=== PATIENT | female | born 2000 | race Two or more races ===

== ENCOUNTER 2020-04-09 09:32 | Outpatient (REF) | payer MEDICAID, SELFPAY | END 2020-04-09 09:33 | disposition home or self-care (01) | LOC: HO.LAB 09:32 | PROVIDERS: Visit Provider Internal Medicine | DX: Z20.828 Contact with and (suspected) exposure to other viral communicable diseases (principal) | CPT/HCPCS: C9803; U0003 ==

== ENCOUNTER 2020-04-28 13:31 | Emergency (ER) | payer MEDICAID, SELFPAY ==
[2020-04-28 13:47] VITALS: BP 116/66; PULSE 87; RESP 18; TEMP 36.6; O2SAT 100; BMI 21.9
--- NOTE | 2020-04-28 13:49 | ED.GENADULT ---
HPI - General Adult General Chief complaint: Abdominal Pain <TYE Tinoco - Last Filed: 04/28/20 13:51> Stated complaint: vomiting <TYE Tinoco - Last Filed: 04/28/20 13:51> Time Seen by Provider: 04/28/20 13:48 <TYE Tinoco - Last Filed: 04/28/20 13:51> Source: patient <Virginia Shabazz NP - Last Filed: 04/28/20 16:09> Mode of arrival: ambulatory <Virginia Shabazz NP - Last Filed: 04/28/20 16:09> Limitations: no limitations <Virginia Shabazz NP - Last Filed: 04/28/20 16:09> Related Data Allergies/adverse reactions: Allergies Allergy/AdvReac Type Severity Reaction Status Date / Time No Known Allergies Allergy Verified 04/28/20 13:46 [No Known Allergies*] <TYE Tinoco - Last Filed: 04/28/20 13:51> Physical Exam Vital Signs: Vital Signs: Last Vital Signs Temp 97.9 F 04/28/20 13:47 Pulse 87 04/28/20 13:47 Resp 18 04/28/20 13:47 BP 116/66 04/28/20 13:47 Pulse Ox 100 04/28/20 13:47 Body Mass Index 21.9 <TYE Tinoco - Last Filed: 04/28/20 13:51> Vital Signs: Last Vital Signs Temp 97.9 F 04/28/20 13:47 Pulse 87 04/28/20 13:47 Resp 18 04/28/20 13:47 BP 116/66 04/28/20 13:47 Pulse Ox 100 04/28/20 13:47 Body Mass Index 21.9 <Virginia Shabazz NP - Last Filed: 04/28/20 16:09> Course Course Course Narrative: Rapid medial assesssment - 19 y/o healthy female presenting with N/V x2 days with intermittent epigastic pain, worse in the morning. Unable to tolerate PO per report. No fever, chills, COVID symptoms. Unsure if , LMP 04/02. No abd pain now. Will check labs, Upreg and UA. Appears well on exam. Management per primary provider in the ER. <TYE Tinoco - Last Filed: 04/28/20 13:51>
--- NOTE | 2020-04-28 16:09 | ED_ITS ---
HPI - Abdominal Pain General Chief Complaint: Abdominal Pain <Virginia Shabazz NP - Last Filed: 04/28/20 18:13> Stated Complaint: vomiting <Virginia Shabazz NP - Last Filed: 04/28/20 18:13> Time Seen by Provider: 04/28/20 13:48 <Virginia Shabazz NP - Last Filed: 04/28/20 18:13> Source: patient <Virginia Shabazz NP - Last Filed: 04/28/20 18:13> Mode of arrival: ambulatory <Virginia Shabazz NP - Last Filed: 04/28/20 18:13> Limitations: no limitations <Virginia Shabazz NP - Last Filed: 04/28/20 18:13> History of Present Illness HPI narrative: 19-year-old female previously healthy here with upper abdominal pain with associated vomiting x1 week. No diarrhea. NBNB emesis. No fevers or chills or urinary symptoms. Pain is worsened after eating. Patient smokes marijuana daily. Last menses 1 month ago. Low concern for . <Virginia Shabazz NP - Last Filed: 04/28/20 18:13> MD elicited complaint: abdominal pain <Virginia Shabazz NP - Last Filed: 04/28/20 18:13> Pertinent past history: none <Virginia Shabazz NP - Last Filed: 04/28/20 18:13> Pain Consistency: intermittent <Virginia Shabazz NP - Last Filed: 04/28/20 18:13> Location: epigastric <Virginia Shabazz NP - Last Filed: 04/28/20 18:13> Severity: mild <Virginia Shabazz NP - Last Filed: 04/28/20 18:13> Quality: burning <Virginia Shabazz NP - Last Filed: 04/28/20 18:13> Radiation: none <BELÉN Mcfarland Last Filed: 04/28/20 18:13> Migration to: no migration <Virginia Shabazz NP - Last Filed: 04/28/20 18:13> Exacerbating factors: nothing <Virginia Shabazz NP - Last Filed: 04/28/20 18:13> Relieving factors: nothing <Virginia Shabazz NP - Last Filed: 04/28/20 18:13> Associated symptoms: denies other symptoms <Virginia Shabazz NP - Last Filed: 04/28/20 18:13> Related Data Date of Last Menstrual Period: 04/03/20 <Virginia Shabazz NP - Last Filed: 04/28/20 18:13> Home Medications: Previous Rx's Medication Instructions Recorded cefpodoxime 100 mg PO BID #14 tab 04/28/20 prenat.vits,daniel,cyy-wlda-rqqkc 1 tab PO DAILY #60 tab 04/28/20 pyridoxine (vitamin B6) 25 mg PO TID #30 tab 04/28/20 <Virginia Shabazz NP - Last Filed: 04/28/20 18:13> Allergies/Adverse Reactions: Allergies Allergy/AdvReac Type Severity Reaction Status Date / Time No Known Allergies Allergy Verified 05/03/20 19:06 [No Known Allergies*] <Virginia Shabazz NP - Last Filed: 04/28/20 18:13> Review of Systems Review of Systems Yes all other systems are reviewed and are negative <Virginia Shabazz NP - Last Filed: 04/28/20 18:13> Constitutional: Reports no additional constitutional complaints, Denies body ache(s), Denies chills, Denies fever(s), Denies headache(s) and Denies weakness <Virginia Shabazz NP - Last Filed: 04/28/20 18:13> Eyes: Reports no additional eye complaints and Denies change in vision <Virginia Shabazz NP - Last Filed: 04/28/20 18:13> Reports system reviewed and no additional complaints, except as documented, Denies dizziness, Denies headache(s), Denies nasal congestion, Denies nasal discharge and Denies neck pain <Virginia Shabazz NP - Last Filed: 04/28/20 18:13> Cardiovascular: Reports no additional cardiovascular complaints, Denies chest pain, Denies leg edema and Denies dyspnea <Virginia Shabazz NP - Last Filed: 04/28/20 18:13> Respiratory: Reports no additional respiratory complaints, Denies cough and Denies dyspnea <Virginia Shabazz NP - Last Filed: 04/28/20 18:13> Gastrointestinal: Reports no additional gastrointestinal complaints, Reports abdominal pain, Denies diarrhea, Reports nausea and Reports vomiting <Virginia Shabazz NP - Last Filed: 04/28/20 18:13> Genitourinary: Reports no additional female genitourinary complaints and Denies urinary incontinence <Virginia Shabazz NP - Last Filed: 04/28/20 18:13> Musculoskeletal: Reports no additional musculoskeletal complaints, Denies back pain, Denies arthralgias, Denies joint swelling, Denies neck pain, Denies numbness and Denies tingling <Virginia Shabazz NP - Last Filed: 04/28/20 18:13> Skin/Breast: Reports system reviewed and no additional complaints, except as docu and Denies rash <Virginia Shabazz NP - Last Filed: 04/28/20 18:13> Reports system reviewed and no additional complaints, except as documented, Denies Abnormal speech present, Denies dizziness, Denies headache(s), Denies numbness, Denies tingling and Denies weakness <Virginia Shabazz NP - Last Filed: 04/28/20 18:13> Physical Exam Vital Signs: Vital Signs: Last Vital Signs Temp 98.7 F 04/28/20 17:04 Pulse 78 04/28/20 17:04 Resp 04/28/20 17:04 BP 119/71 04/28/20 17:04 Pulse Ox 100 04/28/20 17:04 Body Mass Index 21.9 <Virginia Shabazz NP - Last Filed: 04/28/20 18:13> Vital Signs: Last Vital Signs Temp 98.7 F 04/28/20 17:04 Pulse 78 04/28/20 17:04 Resp 04/28/20 17:04 BP 119/71 04/28/20 17:04 Pulse Ox 100 04/28/20 17:04 Body Mass Index 21.9 <TYE Alvarenga - Last Filed: 04/28/20 19:15> Vital Signs: Last Vital Signs Temp 98.7 F 04/28/20 17:04 Pulse 78 04/28/20 17:04 Resp 20 04/28/20 17:04 BP 119/71 04/28/20 17:04 Pulse Ox 100 04/28/20 17:04 Body Mass Index 21.9 <Malvin Haas MD - Last Filed: 05/07/20 08:41> Const: General: cooperative, healthy appearing, comfortable and no acute distress <Virginia Shabazz NP - Last Filed: 04/28/20 18:13> Orientation/consciousness: patient oriented x3 <Virginia Shabazz NP - Last Filed: 04/28/20 18:13> Limitations: no limitations <Virginia Shabazz NP - Last Filed: 04/28/20 18:13> HENMT: Head: Yes normal to inspection <Virginia Shabazz NP - Last Filed: 04/28/20 18:13> Ears: hearing grossly normal bilaterally <Virginia Shabazz NP - Last Filed: 04/28/20 18:13> General nose exam: Normal external nose present <Virginia Shabazz NP - Last Filed: 04/28/20 18:13> Face and sinus: Yes normal facial exam <Virginia Shabazz NP - Last Filed: 04/28/20 18:13> Mouth: Normal oral and palatal mucosa present <Virginia Shabazz NP - Last Filed: 04/28/20 18:13> Throat: Yes posterior oropharynx normal <Virginia Shabazz NP - Last Filed: 04/28/20 18:13> Eyes: General: appearance normal, both eyes and all related structures <Virginia Shabazz NP - Last Filed: 04/28/20 18:13> Pupils: Equal, round and reactive pupils present <Virginia Shabazz NP - Last Filed: 04/28/20 18:13> Neck: Neck: Yes normal visual inspection <Virginia Shabazz NP - Last Filed: 04/28/20 18:13> Chest: Chest palpation & inspection: normal inspection of the chest <Virginia Shabazz NP - Last Filed: 04/28/20 18:13> Resp: Effort & Inspection: normal respiratory effort <Virginia Shabazz NP - Last Filed: 04/28/20 18:13> Auscultation: clear to auscultation bilaterally <Virginia Shabazz NP - Last Filed: 04/28/20 18:13> Cardio: Rate: regular rate <Virginia Shabazz NP - Last Filed: 04/28/20 18 :13> Rhythm: regular rhythm <Virginia Shabazz NP - Last Filed: 04/28/20 18:13> Peripheral pulses: Peripheral pulses 2+ throughout <Virginia Shabazz NP - Last Filed: 04/28/20 18:13> GI: Inspection: Yes normal to inspection <Virginia Shabazz NP - Last Filed: 04/28/20 18:13> Palpation (GI): Soft to palpation and Tenderness to palpation present (GI) (No g uarding) in the epigastrum; with no rebound tenderness <Virginia Shabazz NP - Last Filed: 04/28/20 18:13> Auscultation: normal bowel sounds <Virginia Shabazz NP - Last Filed: 04/28/20 18:13> Back/Spine/Pelvis: Thoracic/Lumbar Spine: thoracic and lumbar spine normal to inspection <Virginia Shabazz NP - Last Filed: 04/28/20 18:13> Skin: General skin exam: no rashes or lesions noted <Virginia Shabazz NP - Last Filed: 04/28/20 18:13> Neuro: General: patient oriented x3, no focal motor deficits and normal sensation to monofilament <Virginia Shabazz NP - Last Filed: 04/28/20 18:13> Cranial nerves: Yes Equal, round and reactive pupils present <Virginia Shabazz NP - Last Filed: 04/28/20 18:13> Cognition (Neuro): normal cognition <Virginia Shabazz NP - Last Filed: 04/28/20 18:13> Speech: No Abnormal speech present <Virginia Shabazz NP - Last Filed: 04/28/20 18:13> Gait exam (Neuro): Normal gait present <Virginia Shabazz NP - Last Filed: 04/28/20 18:13> Motor exam (neuro): 5/5 motor strength present throughout <Virginia Shabazz NP - Last Filed: 04/28/20 18:13> Extrem: General: Yes normal to inspection <Virginia Shabazz NP - Last Filed: 04/28/20 18:13> Course Course Course Narrative: 19 yo female here with upper abdominal pain and vomiting x 1 week. Will need labs, UA, NSB, antiemetic and PPI. 1745-+. Add on beta quant. Additional labs pending. Patient feels much improved and epigastric pain is resolved, tolerating PO. No cramping, lower abdominal pain or vaginal bleeding. 1809-additional labs unremarkable. Patient able tolerate p.o.. 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 Her UA is consistent with UTI so we will treat this. Reviewed worrisome signs and symptoms and when to return to the emergency department. Comfortable discharge home. <Virginia Shabazz NP - Last Filed: 04/28/20 18:13> I have reviewed the chart <Malvin Haas MD - Last Filed: 05/07/20 08:41> MDM - Abdominal Pain MDM Narrative Medical decision making narrative: Gastritis, GERD, cholelithiasis, gallstones <Virginia Shabazz NP - Last Filed: 04/28/20 18:13> Medical Records Attestation: I reviewed the patient's medical records. <Virginia Shabazz NP - Last Filed: 04/28/20 18:13> Lab Data Attestation: I reviewed the patient's lab results. <Virginia Shabazz NP - Last Filed: 04/28/20 18:13> Result diagrams: : 04/28/20 17:03 04/28/20 17:03 <Virginia Shabazz NP - Last Filed: 04/28/20 18:13> Labs: Lab Results 04/28/20 04/28/20 04/28/20 Range/Units 17:03 17:03 17:03 WBC 4.7 L (4.8-10.8) X10*3/uL RBC 4.07 L (4.20-5.50) X10*6/uL Hgb 12.5 (12.0-16.0) g/dl Hct 37.9 (37-47) % MCV 93.1 (80-98) fL MCH 30.7 (27.0-33.0) pg MCHC 33.0 (31.0-35.0) g/dl RDW 13.9 (11.0-16.0) % Plt Count 280 (160-400) X10*3/uL MPV 10.4 (9.4-12.3) fL Immature Gran % (Auto) 0.2 (0.0-0.4) % Neut % (Auto) 57.3 (45-73) % Lymph % (Auto) 28.3 (20-40) % Robertson % (Auto) 12.9 H (2-11) % Eos % (Auto) 0.2 (0-4) % Baso % (Auto) 1.1 (0-2) % Lymph # (Auto) 1.3 (1.2-4.9) X10*3/uL Robertson # (Auto) 0.6 (0.1-1.2) X10*3/uL Eos # (Auto) 0.0 (0.0-0.4) X10*3/uL Baso # (Auto) 0.1 (0.0-0.2) X10*3/uL Abs Immat Gran (auto) 0.01 (0.00-0.03) X10*3/uL Absolute Neuts (auto) 2.7 (2.0-8.3) X10*3/uL Absolute Nucleated RBC 0.000 (0.0-0.012) X10*3/uL Nucleated RBC % (auto) 0.0 (0.0-0.2) /100WBC Sodium 136 (135-145) mmol/L Potassium 4.0 (3.3-5.1) mmol/l Chloride 101 (96-108) mmol/L Carbon Dioxide 25 (22-29) mmol/L Anion Gap 14 (12-20) BUN 14 (9-16) mg/dL Creatinine 0.70 (0.5-1.4) mg/dL Estim Creat Clear Calc 101.3 Estimated GFR > 60 Random Glucose 86 (60-115) mg/dL Calcium 9.5 (8.4-10.2) mg/dL Magnesium 2.1 (1.6-2.6) mg/dL Total Bilirubin 0.7 (0.0-1.0) mg/dL Direct Bilirubin 0.3 (0.0-0.5) mg/dL AST 18 (5-31) U/L ALT 14 (0-31) U/L Alkaline Phosphatase 53 (39-117) U/L Total Protein 7.3 (6.5-8.0) g/dL Albumin 4.5 (3.5-5.0) g/dL Lipase 47 (8-78) U/L Beta HCG, Quant 14115 mIU/mL Urine Color YELLOW Urine Appearance TURBID Urine pH 6.0 (5.0-8.0) Ur Specific [place] 1.025 (1.005-1.025) Urine Protein 1+ H (NEG-TRACE) MG/DL Urine Glucose (UA) NEG (NEG) MG/DL Urine Ketones 15 (NEG) MG/DL Urine Blood TRACE (NEG) Urine Nitrite POS H (NEG) Ur Leukocyte Esterase 1+ H (NEG) Urine RBC 1-4 (0) /HPF Urine WBC 30-49 H (0-4) /HPF Ur Squamous Epith Cells TRACE /LPF Urine Bacteria 3+ /LPF Urine Mucus 1+ /LPF Urine Test POSITIVE H (NEGATIVE) <Virginia Shabazz NP - Last Filed: 04/28/20 18:13> Lab Results 04/28/20 04/28/20 04/28/20 Range/Units 17:03 17:03 17:03 WBC 4.7 L (4.8-10.8) X10*3/uL RBC 4.07 L (4.20-5.50) X10*6/uL Hgb 12.5 (12.0-16.0) g/dl Hct 37.9 (37-47) % MCV 93.1 (80-98) fL MCH 30.7 (27.0-33.0) pg MCHC 33.0 (31.0-35.0) g/dl RDW 13.9 (11.0-16.0) % Plt Count 280 (160-400) X10*3/uL MPV 10.4 (9.4-12.3) fL Immature Gran % (Auto) 0.2 (0.0-0.4) % Neut % (Auto) 57.3 (45-73) % Lymph % (Auto) 28.3 (20-40) % Robertson % (Auto) 12.9 H (2-11) % Eos % (Auto) 0.2 (0-4) % Baso % (Auto) 1.1 (0-2) % Lymph # (Auto) 1.3 (1.2-4.9) X10*3/uL Robertson # (Auto) 0.6 (0.1-1.2) X10*3/uL Eos # (Auto) 0.0 (0.0-0.4) X10*3/uL Baso # (Auto) 0.1 (0.0-0.2) X10*3/uL Abs Immat Gran (auto) 0.01 (0.00-0.03) X10*3/uL Absolute Neuts (auto) 2.7 (2.0-8.3) X10*3/uL Absolute Nucleated RBC 0.000 (0.0-0.012) X10*3/uL Nucleated RBC % (auto) 0.0 (0.0-0.2) /100WBC Sodium 136 (135-145) mmol/L Potassium 4.0 (3.3-5.1) mmol/l Chloride 101 (96-108) mmol/L Carbon Dioxide 25 (22-29) mmol/L Anion Gap 14 (12-20) BUN 14 (9-16) mg/dL Creatinine 0.70 (0.5-1.4) mg/dL Estim Creat Clear Calc 101.3 Estimated GFR > 60 Random Glucose 86 (60-115) mg/dL Calcium 9.5 (8.4-10.2) mg/dL Magnesium 2.1 (1.6-2.6) mg/dL Total Bilirubin 0.7 (0.0-1.0) mg/dL Direct Bilirubin 0.3 (0.0-0.5) mg/dL AST 18 (5-31) U/L ALT 14 (0-31) U/L Alkaline Phosphatase 53 (39-117) U/L Total Protein 7.3 (6.5-8.0) g/dL Albumin 4.5 (3.5-5.0) g/dL Lipase 47 (8-78) U/L Beta HCG, Quant 90659 mIU/mL Urine Color YELLOW Urine Appearance TURBID Urine pH 6.0 (5.0-8.0) Ur Specific [place] 1.025 (1.005-1.025) Urine Protein 1+ H (NEG-TRACE) MG/DL Urine Glucose (UA) NEG (NEG) MG/DL Urine Ketones 15 (NEG) MG/DL Urine Blood TRACE (NEG) Urine Nitrite POS H (NEG) Ur Leukocyte Esterase 1+ H (NEG) Urine RBC 1-4 (0) /HPF Urine WBC 30-49 H (0-4) /HPF Ur Squamous Epith Cells TRACE /LPF Urine Bacteria 3+ /LPF Urine Mucus 1+ /LPF Urine Test POSITIVE H (NEGATIVE) <TYE Alvarenga - Last Filed: 04/28/20 19:15> Lab Results 04/28/20 04/28/20 04/28/20 Range/Units 17:03 17:03 17:03 WBC 4.7 L (4.8-10.8) X10*3/uL RBC 4.07 L (4.20-5.50) X10*6/uL Hgb 12.5 (12.0-16.0) g/dl Hct 37.9 (37-47) % MCV 93.1 (80-98) fL MCH 30.7 (27.0-33.0) pg MCHC 33.0 (31.0-35.0) g/dl RDW 13.9 (11.0-16.0) % Plt Count 280 (160-400) X10*3/uL MPV 10.4 (9.4-12.3) fL Immature Gran % (Auto) 0.2 (0.0-0.4) % Neut % (Auto) 57.3 (45-73) % Lymph % (Auto) 28.3 (20-40) % Robertson % (Auto) 12.9 H (2-11) % Eos % (Auto) 0.2 (0-4) % Baso % (Auto) 1.1 (0-2) % Lymph # (Auto) 1.3 (1.2-4.9) X10*3/uL Robertson # (Auto) 0.6 (0.1-1.2) X10*3/uL Eos # (Auto) 0.0 (0.0-0.4) X10*3/uL Baso # (Auto) 0.1 (0.0-0.2) X10*3/uL Abs Immat Gran (auto) 0.01 (0.00-0.03) X10*3/uL Absolute Neuts (auto) 2.7 (2.0-8.3) X10*3/uL Absolute Nucleated RBC 0.000 (0.0-0.012) X10*3/uL Nucleated RBC % (auto) 0.0 (0.0-0.2) /100WBC Sodium 136 (135-145) mmol/L Potassium 4.0 (3.3-5.1) mmol/l Chloride 101 (96-108) mmol/L Carbon Dioxide 25 (22-29) mmol/L Anion Gap 14 (12-20) BUN 14 (9-16) mg/dL Creatinine 0.70 (0.5-1.4) mg/dL Estim Creat Clear Calc 101.3 Estimated GFR > 60 Random Glucose 86 (60-115) mg/dL Calcium 9.5 (8.4-10.2) mg/dL Magnesium 2.1 (1.6-2.6) mg/dL Total Bilirubin 0.7 (0.0-1.0) mg/dL Direct Bilirubin 0.3 (0.0-0.5) mg/dL AST 18 (5-31) U/L ALT 14 (0-31) U/L Alkaline Phosphatase 53 (39-117) U/L Total Protein 7.3 (6.5-8.0) g/dL Albumin 4.5 (3.5-5.0) g/dL Lipase 47 (8-78) U/L Beta HCG, Quant 08814 mIU/mL Urine Color YELLOW Urine Appearance TURBID Urine pH 6.0 (5.0-8.0) Ur Specific [place] 1.025 (1.005-1.025) Urine Protein 1+ H (NEG-TRACE) MG/DL Urine Glucose (UA) NEG (NEG) MG/DL Urine Ketones 15 (NEG) MG/DL Urine Blood TRACE (NEG) Urine Nitrite POS H (NEG) Ur Leukocyte Esterase 1+ H (NEG) Urine RBC 1-4 (0) /HPF Urine WBC 30-49 H (0-4) /HPF Ur Squamous Epith Cells TRACE /LPF Urine Bacteria 3+ /LPF Urine Mucus 1+ /LPF Urine Test POSITIVE H (NEGATIVE) <Malvin Haas MD - Last Filed: 05/07/20 08:41> Discharge Plan Discharge Clinical Impression: , Vomiting, UTI (urinary tract infection) <Virginia Shabazz NP - Last Filed: 04/28/20 18:13> Patient Disposition: Home, Self-Care <Virginia Shabazz NP - Last Filed: 04/28/20 18:13> Instructions: (ED), Urinary Tract Infection in (ED) <Virginia Shabazz NP - Last Filed: 04/28/20 18:13> Additional Instructions: Before getting out of bed in the morning eat a saltine cracker Take the pyridoxine for nausea and vomiting Tylenol only for pain Stay well hydrated and drink powerade and gatorade Call Dr Fu for an appointment <Virginia Shabazz NP - Last Filed: 04/28/20 18:13> Prescriptions: New pyridoxine (vitamin B6) 25 mg tablet 25 mg PO TID Qty: 30 RF: 0 prenat.vits,daniel,ril-lvmw-bywdl Tablet 1 tab PO DAILY Qty: 60 RF: 0 cefpodoxime 100 mg tablet 100 mg PO BID Qty: 14 RF: 0 <Virginia Shabazz NP - Last Filed: 04/28/20 18:13> Referrals: Carlton Fu MD [Physician] - 2 days <Virginia Shabazz NP - Last Filed: 04/28/20 18:13> Interventions: ED Discharge Assessment Last Done: 04/28/20 19:33 <Virginia Shabazz NP - Last Filed: 04/28/20 18:13> Discharge Date/Time: 04/28/20 19:34 <Virginia Shabazz NP - Last Filed: 04/28/20 18:13> PMFSH Past Medical History Date of Last Menstrual Period: 04/03/20 <Virginia Shabazz NP - Last Filed: 04/28/20 18:13> Social History Social History: Social History Alcohol intake: never Smoking Status: Never smoker Advance Directives: No Advance Directives Information Provided: No <Virginia Shabazz NP - Last Filed: 04/28/20 18:13>
[2020-04-28 17:04] VITALS: BP 119/71; PULSE 78; RESP 20; TEMP 37.1; O2SAT 100
[2020-04-28 17:17] LABS: MANUAL DIFF FLAG NO
[2020-04-28 17:23] LABS: Basophils Absolute Auto 0.1 X10*3/uL (0.0-0.2); Basophils Percent Auto 1.1 % (0-2); Eosinophils Percent Auto 0.2 % (0-4); Hematocrit 37.9 % (37-47); Hemoglobin 12.5 g/dl (12.0-16.0); Imm Gran Abs Auto 0.01 X10*3/uL (0.00-0.03); Imm Gran Pct Auto 0.2 % (0.0-0.4); Lymphocytes Absolute Auto 1.3 X10*3/uL (1.2-4.9); Lymphocytes Percent Auto 28.3 % (20-40); Mean Corpuscular Hemoglobin 30.7 pg (27.0-33.0); Mean Corpuscular Volume 93.1 fL (80-98); Mean Platelet Volume 10.4 fL (9.4-12.3); Monocytes Absolute Auto 0.6 X10*3/uL (0.1-1.2); Monocytes Percent Auto 12.9 % (2-11); Neutrophils Absolute Auto 2.7 X10*3/uL (2.0-8.3); Neutrophils Percent Auto 57.3 % (45-73); Platelet Count 280 X10*3/uL (160-400); Red Blood Count 4.07 X10*6/uL (4.20-5.50); Red Cell Distribution Width 13.9 % (11.0-16.0); White Blood Count 4.7 X10*3/uL (4.8-10.8)
[2020-04-28] MEDS: 0.9 % Sodium Chloride 1,000 ML 999 ML IV (17:24)
[2020-04-28 17:25] LABS: Glucose Urine UA NEG (NEG); Leukocyte Esterase Urine 1+ (NEG); Nitrite Urine POS (NEG); Specific Gravity - Urine 1.025 (1.005-1.025); Urine Blood TRACE (NEG); Urine Ketones 15 MG/DL (NEG); Urine Protein 1+ MG/DL (NEG-TRACE)
[2020-04-28] MEDS: ondansetron HCL 4 MG/2 ML VIAL IVPUSH (17:25)
[2020-04-28] MEDS: Famotidine/PF 20 MG/2 ML VIAL IVPUSH (17:25)
[2020-04-28 17:33] LABS: Color Urine YELLOW
[2020-04-28 17:34] LABS: Appearance Urine TURBID
[2020-04-28 17:35] LABS: UPreg QC Valid YES; Urine Pregnancy POSITIVE (NEGATIVE)
[2020-04-28 17:41] LABS: Bacteria Urine 3+ /LPF; Mucus Urine 1+ /LPF; Squamous Epithelial Cell Urine TRACE /LPF; WBC Urine 30-49 /HPF (0-4)
[2020-04-28 17:52] LABS: Alanine Aminotransferase 14 U/L (0-31); Albumin Level 4.5 g/dL (3.5-5.0); Alkaline Phosphatase 53 U/L (39-117); Anion Gap 14 (12-20); Aspartate Amino Transferase 18 U/L (5-31); Bilirubin Direct 0.3 mg/dL (0.0-0.5); Bilirubin Total 0.7 mg/dL (0.0-1.0); Blood Urea Nitrogen 14 mg/dL (9-16); Calcium 9.5 mg/dL (8.4-10.2); Carbon Dioxide 25 mmol/L (22-29); Chloride 101 mmol/L (96-108); Creatinine Clr Calc Pharmacy 101.3; Estimated Glomerular Filt Rate > 60; Glucose Random 86 mg/dL (60-115); Lipase 47 U/L (8-78); Magnesium 2.1 mg/dL (1.6-2.6); Sodium 136 mmol/L (135-145); Total Protein 7.3 g/dL (6.5-8.0)
== END 2020-04-28 19:34 | disposition home or self-care (01) ==
PROVIDERS: Nurse Practitioner Family; Physician Assistant; Emergency Provider Emergency Medicine
DX: O23.41 Unspecified infection of urinary tract in pregnancy, first trimester (principal); O99.322 Drug use complicating pregnancy, second trimester; F12.90 Cannabis use, unspecified, uncomplicated; Z3A.01 Less than 8 weeks gestation of pregnancy
CPT/HCPCS: 36415; 80048; 80076; 81001; 81025; 83690; 83735; 84702; 85025; 87086; 87088; 87186; 96361; 96374; 96375; 99284; J2405

== ENCOUNTER 2020-05-03 18:59 | Emergency (ER) | payer MEDICAID, SELFPAY ==
[2020-05-03 19:07] VITALS: BP 116/69; PULSE 81; RESP 18; TEMP 37.1; O2SAT 98; BMI 22.1
[2020-05-03 19:28] LABS: Glucose Urine UA NEG (NEG); Leukocyte Esterase Urine NEG (NEG); Nitrite Urine POS (NEG); UACC Culture Trigger YES; Urine Blood NEG (NEG); Urine Ketones 5 MG/DL (NEG); Urine Protein NEG (NEG-TRACE)
[2020-05-03 19:30] LABS: Appearance Urine HAZY; Color Urine YELLOW
[2020-05-03 19:38] LABS: Bacteria Urine 3+ /LPF; RBC Urine 0 /HPF (0); Squamous Epithelial Cell Urine TRACE /LPF; WBC Urine 0-2 /HPF (0-4)
--- NOTE | 2020-05-03 20:45 | US_ITS ---
EXAMINATION: ULTRASOUND OB LESS THAN 14 WEEKS CLINICAL INFORMATION: Right lower quadrant pain, vaginal bleeding. Rule out ectopic. COMPARISON: None TECHNIQUE: Transabdominal ultrasound pelvis is performed. FINDINGS: The uterus is anteverted with an intrauterine gestational sac, pole and yolk sac. The crown-rump length measures 0.66 cm corresponding to 6 weeks 4 days and MARIBELL of 12/23/2020. The heart rate is 126 bpm. A small subchorionic bleed lateral to gestational sac is suspected. The right ovary measures 2.4 x 1.3 x 1.2 cm and appears unremarkable. Left ovary measures 2.2 x 0.9 x 1.5 cm and appears unremarkable. US/US OB <= 14 weeks fetus IMPRESSION: Live intrauterine fetus with a small subchorionic bleed visualized. ultrasound measurement corresponds to 6 weeks and 4 days and MARIBELL of 12/23/2020.
--- NOTE | 2020-05-03 20:53 | ED_ITS ---
HPI - General Adult General Chief complaint: Vaginal Bleeding Stated complaint: bleeding, Time Seen by Provider: 05/03/20 20:26 Source: patient Mode of arrival: ambulatory Limitations: no limitations History of Present Illness HPI narrative: 19-year-old female who presents emergency department for evaluation vaginal bleeding and abdominal pain. The patient is a G2, P0, 4 weeks, 3 days gestation by LMP 04/02/2020 who was seen in the emergency department 5 days prior (04/28/2020) for urinary tract infection treated with Cefpodoxime. She states that around 4:00 p.m. she urinated and the urine was blood-tinged. She then developed sharp pain in the right lower quadrant which lasted 4 minutes. The pain was constant, moderate intensity and then resolved. Patient states that she had a miscarriage 2 years prior was concerned that she was having another miscarriage therefore she came to the emergency department. In the emergency department she denied frequency, urgency or dysuria. She denied abdominal pain. She has had nausea but no vomiting. She denied fever or chills. On 04/28/2020 the patient's urinalysis and microscopic evaluation revealed 30-49 white blood cells and 3+ bacteria. She had a quantitative beta HCG which was 47,505. Related Data Previous Rx's Medication Instructions Recorded cefpodoxime 100 mg PO BID #14 tab 04/28/20 prenat.vits,daniel,qfg-tiyw-kyafu 1 tab PO DAILY #60 tab 04/28/20 pyridoxine (vitamin B6) 25 mg PO TID #30 tab 04/28/20 Allergies Allergy/AdvReac Type Severity Reaction Status Date / Time No Known Allergies Allergy Verified 05/03/20 19:06 [No Known Allergies*] Review of Systems Review of Systems: Yes all other systems are reviewed and are negative Neurologic: Reports Abnormal speech present [facility] Past Medical History [facility] Narrative: Patient is a G2, P0, 1 miscarriage at 2-3 months approximately 2 years prior, no other medical problems, she denies tobacco, alcohol and drug use. Social History Social History Alcohol intake: never Smoking Status: Never smoker Advance Directives: No Advance Directives Information Provided: No Physical Exam Vital Signs: Vital Signs: Last Vital Signs Temp 98.6 F 05/03/20 21:56 Pulse 88 05/03/20 21:56 Resp 18 05/03/20 21:56 BP 121/78 05/03/20 21:56 Pulse Ox 100 05/03/20 21:56 Body Mass Index 22.1 Const: General: cooperative and healthy appearing Orientation/consciou sness: oriented to person and oriented to place Limitations: no limitations HENMT: Head: Yes normal to inspection, Yes normocephalic and Yes atraumatic Ears: external ears normal General nose exam: Normal external nose present Face and sinus: Yes normal facial exam Mouth: Normal oral and palatal mucosa present Throat: Yes posterior oropharynx normal Eyes: Periorbital: periorbital findings normal Eyelids: Yes eyelids normal Conjunctivae: conjunctivae normal Sclerae: sclerae normal Corneas: corneas normal Pupils: Equal, round and reactive pupils present Direct Ophthalmoscopy: normal light reflex Neck: Neck: Yes full ROM, Yes no lymphadenopathy, Yes no meningeal signs, Yes trachea midline and Yes supple Chest: Chest palpation & inspection: normal inspection of the chest and normal palpation of entire chest wall Resp: Effort & Inspection: normal respiratory effort and able to speak in complete sentences Auscultation: clear to auscultation bilaterally Cardio: Rate: regular rate Rhythm: regular rhythm Heart sounds: S1 normal heart sound present, S2 normal heart sound present and no murmurs GI: Inspection: Yes normal to inspection Palpation (GI): Soft to palpation, Tenderness to palpation present (GI) ([id number] RLQ tenderness), no guarding, not rigid and No hepatosplenomegaly present : General: Yes no CVA tenderness Back/Spine/Pelvis: Back: no CVA tenderness Cervical Spine: normal cervical lordosis Thoracic/Lumbar Spine: thoracic and lumbar spine normal to inspection Skin: Lesions: no lesions Rashes: no rashes Wounds: no wounds Neuro: General: oriented to person, oriented to place and no meningeal signs Cranial nerves: Yes Equal, round and reactive pupils present Cognition (Neuro): normal cognition Speech: Abnormal speech present Motor exam (neuro): 5/5 motor strength present throughout Extrem: General: Yes normal to inspection and Yes full ROM Psych: Appearance: well kempt Mental Status: mental status grossly normal Speech and movement: Normal speech and movement present Affect: normal affect Attitude: cooperative Thought process: Normal thought process present Thought content: Normal thought content present Course Course Course Narrative: 19-year-old female who presented to the emergency department for evaluation RLQ pain which lasted for minutes and blood tinged urine. The patient is 4 weeks and 3 days by LMP date. She was seen 5 days prior for urinary tract infection and is currently taking antibiotics. Examination revealed normal vital signs, she did have [id number] right lower quadrant tenderness. I did order laboratory evaluation to include CBC, CMP, quantitative beta HCG, blood type and pelvic ultrasound to rule out ectopic. 2218: The patient's CBC was unremarkable with an H&H of 12 and 37.6, which was similar to her H&H on 04/28/2020. Comprehensive metabolic panel was normal. Patient's blood type is B positive. She had improvement of the WBCs but she still has bacteria in her urine. Urine culture did grow E coli which was pansensitive and should be sensitive to the 3rd generation cephalosporin that she was started on 04/28/2020. The pelvic ultrasound revealed a live 6 week 4 day intrauterine with an EDC of 12/23/2020. There was a small chorionic bleed which may explain the patient's abdominal pain and bleeding. I did discuss these findings with the patient and the patient will be discharged home. She was given verbal and printed instructions, she was advised to take Tylenol for pain and I told it was important to make sure that she keeps her appointments with the senior service aide providers. Repeat quantitative beta-hCG increased from 47,000 to 132,000. Medical Decision Making Lab Data Result diagrams: 05/03/20 21:47 05/03/20 21:47 Labs: Lab Results 05/03/20 05/03/20 05/03/20 Range/Units 19:17 21:47 21:47 WBC 6.0 (4.8-10.8) X10*3/uL RBC 4.04 L (4.20-5.50) X10*6/uL Hgb 12.4 (12.0-16.0) g/dl Hct 37.6 (37-47) % MCV 93.1 (80-98) fL MCH 30.7 (27.0-33.0) pg MCHC 33.0 (31.0-35.0) g/dl RDW 13.9 (11.0-16.0) % Plt Count 254 (160-400) X10*3/uL MPV 10.8 (9.4-12.3) fL Immature Gran % (Auto) 0.2 (0.0-0.4) % Neut % (Auto) 64.7 (45-73) % Lymph % (Auto) 24.2 (20-40) % [place] % (Auto) 9.2 (2-11) % Eos % (Auto) 1.2 (0-4) % Baso % (Auto) 0.5 (0-2) % Lymph # (Auto) 1.5 (1.2-4.9) X10*3/uL [place] # (Auto) 0.6 (0.1-1.2) X10*3/uL Eos # (Auto) 0.1 (0.0-0.4) X10*3/uL Baso # (Auto) 0.0 (0.0-0.2) X10*3/uL Abs Immat Gran (auto) 0.01 (0.00-0.03) X10*3/uL Absolute Neuts (auto) 3.9 (2.0-8.3) X10*3/uL Absolute Nucleated RBC 0.000 (0.0-0.012) X10*3/uL Nucleated RBC % (auto) 0.0 (0.0-0.2) /100WBC Sodium 136 (135-145) mmol/L Potassium 3.9 (3.3-5.1) mmol/l Chloride 103 (96-108) mmol/L Carbon Dioxide 24 (22-29) mmol/L Anion Gap 13 (12-20) BUN 9 (9-16) mg/dL Creatinine 0.64 (0.5-1.4) mg/dL Estim Creat Clear Calc 115.9 Estimated GFR > 60 Random Glucose 85 (60-115) mg/dL Calcium 9.2 (8.4-10.2) mg/dL Total Bilirubin 0.3 (0.0-1.0) mg/dL AST 17 (5-31) U/L ALT 11 (0-31) U/L Alkaline Phosphatase 53 (39-117) U/L Total Protein 7.1 (6.5-8.0) g/dL Albumin 4.5 (3.5-5.0) g/dL Beta HCG, Quant 012253 mIU/mL Urine Color YELLOW Urine Appearance HAZY Urine pH 7.0 (5.0-8.0) Ur Specific [place] 1.020 (1.005-1.025) Urine Protein NEG (NEG-TRACE) MG/DL Urine Glucose (UA) NEG (NEG) MG/DL Urine Ketones 5 (NEG) MG/DL Urine Blood NEG (NEG) Urine Nitrite POS H (NEG) Ur Leukocyte Esterase NEG (NEG) Urine RBC 0 (0) /HPF Urine WBC 0-2 (0-4) /HPF Ur Squamous Epith Cells TRACE /LPF Urine Bacteria 3+ /LPF Blood Type 05/03/20 Range/Units 21:47 WBC (4.8-10.8) X10*3/uL RBC (4.20-5.50) X10*6/uL Hgb (12.0-16.0) g/dl Hct (37-47) % MCV (80-98) fL MCH (27.0-33.0) pg MCHC (31.0-35.0) g/dl RDW (11.0-16.0) % Plt Count (160-400) X10*3/uL MPV (9.4-12.3) fL Immature Gran % (Auto) (0.0-0.4) % Neut % (Auto) (45-73) % Lymph % (Auto) (20-40) % [place] % (Auto) (2-11) % Eos % (Auto) (0-4) % Baso % (Auto) (0-2) % Lymph # (Auto) (1.2-4.9) X10*3/uL [place] # (Auto) (0.1-1.2) X10*3/uL Eos # (Auto) (0.0-0.4) X10*3/uL Baso # (Auto) (0.0-0.2) X10*3/uL Abs Immat Gran (auto) (0.00-0.03) X10*3/uL Absolute Neuts (auto) (2.0-8.3) X10*3/uL Absolute Nucleated RBC (0.0-0.012) X10*3/uL Nucleated RBC % (auto) (0.0-0.2) /100WBC Sodium (135-145) mmol/L Potassium (3.3-5.1) mmol/l Chloride (96-108) mmol/L Carbon Dioxide (22-29) mmol/L Anion Gap (12-20) BUN (9-16) mg/dL Creatinine (0.5-1.4) mg/dL Estim Creat Clear Calc Estimated GFR Random Glucose (60-115) mg/dL Calcium (8.4-10.2) mg/dL Total Bilirubin (0.0-1.0) mg/dL AST (5-31) U/L ALT (0-31) U/L Alkaline Phosphatase (39-117) U/L Total Protein (6.5-8.0) g/dL Albumin (3.5-5.0) g/dL Beta HCG, Quant mIU/mL Urine Color Urine Appearance Urine pH (5.0-8.0) Ur Specific [place] (1.005-1.025) Urine Protein (NEG-TRACE) MG/DL Urine Glucose (UA) (NEG) MG/DL Urine Ketones (NEG) MG/DL Urine Blood (NEG) Urine Nitrite (NEG) Ur Leukocyte Esterase (NEG) Urine RBC (0) /HPF Urine WBC (0-4) /HPF Ur Squamous Epith Cells /LPF Urine Bacteria /LPF Blood Type B Positive Imaging Data Ultrasound. pelvis: Radiologist's impression: FINDINGS: The uterus is anteverted with an intrauterine gestational sac, pole and yolk sac. The crown-rump length measures 0.66 cm corresponding to 6 weeks 4 days and MARIBELL of 12/23/2020. The heart rate is 126 bpm. A small subchorionic bleed lateral to gestational sac is suspected. The right ovary measures 2.4 x 1.3 x 1.2 cm and appears unremarkable. Left ovary measures 2.2 x 0.9 x 1.5 cm and appears unremarkable. US/US OB <= 14 weeks fetus IMPRESSION: Live intrauterine fetus with a small subchorionic bleed visualized. ultrasound measurement corresponds to 6 weeks and 4 days and MARIBELL of 12/23/2020. Dictated By:SEAN JOHNSON MDSigned By:<Electronically signed by SEAN JOHNSON MD in OV>05/03/20 3958 Discharge Plan Discharge Clinical Impression: Intrauterine , Vaginal bleeding affecting early Abdominal pain Qualifiers: Abdominal location: right lower quadrant Qualified Code(s): R10.31 - Right lower quadrant pain Patient Disposition: Home, Self-Care Instructions: Non-Threatening First Trimester Vaginal Bleed (ED) Additional Instructions: The ultrasound revealed that you have a intrauterine measuring 6 weeks and 4 days with an estimated due date based on these findings of December 23, 2020. There was a small chorionic bleed noted on the ultrasound which may explain the blood that you saw when you urinated and may explain some of the pain that you had today. Your blood type is B positive. Take Tylenol (acetaminophen) 500 mg pills, 2 pills every 4 to 6 hours as needed for pain. Follow-up with your doctor in 2 days. Please return to the emergency department if your symptoms get worse or if you develop any symptoms that are concerning to you. Prescriptions: No Action pyridoxine (vitamin B6) 25 mg tablet 25 mg PO TID Qty: 30 RF: 0 prenat.vits,daniel,[id number] Tablet 1 tab PO DAILY Qty: 60 RF: 0 cefpodoxime 100 mg tablet 100 mg PO BID Qty: 14 RF: 0
[2020-05-03] MEDS: 0.9 % Sodium Chloride 1,000 ML 999 ML IV (21:00)
[2020-05-03 21:54] LABS: MANUAL DIFF FLAG NO
[2020-05-03 21:56] VITALS: BP 121/78; PULSE 88; RESP 18; TEMP 37; O2SAT 100
[2020-05-03 22:05] LABS: Basophils Percent Auto 0.5 % (0-2); Eosinophils Absolute Auto 0.1 X10*3/uL (0.0-0.4); Eosinophils Percent Auto 1.2 % (0-4); Hematocrit 37.6 % (37-47); Hemoglobin 12.4 g/dl (12.0-16.0); Imm Gran Abs Auto 0.01 X10*3/uL (0.00-0.03); Imm Gran Pct Auto 0.2 % (0.0-0.4); Lymphocytes Absolute Auto 1.5 X10*3/uL (1.2-4.9); Lymphocytes Percent Auto 24.2 % (20-40); Mean Corpuscular Hemoglobin 30.7 pg (27.0-33.0); Mean Corpuscular Volume 93.1 fL (80-98); Mean Platelet Volume 10.8 fL (9.4-12.3); Monocytes Absolute Auto 0.6 X10*3/uL (0.1-1.2); Monocytes Percent Auto 9.2 % (2-11); Neutrophils Absolute Auto 3.9 X10*3/uL (2.0-8.3); Neutrophils Percent Auto 64.7 % (45-73); Platelet Count 254 X10*3/uL (160-400); Red Blood Count 4.04 X10*6/uL (4.20-5.50); Red Cell Distribution Width 13.9 % (11.0-16.0)
[2020-05-03 22:17] LABS: Alanine Aminotransferase 11 U/L (0-31); Albumin Level 4.5 g/dL (3.5-5.0); Alkaline Phosphatase 53 U/L (39-117); Anion Gap 13 (12-20); Aspartate Amino Transferase 17 U/L (5-31); Bilirubin Total 0.3 mg/dL (0.0-1.0); Blood Urea Nitrogen 9 mg/dL (9-16); Calcium 9.2 mg/dL (8.4-10.2); Carbon Dioxide 24 mmol/L (22-29); Chloride 103 mmol/L (96-108); Creatinine Clr Calc Pharmacy 115.9; Estimated Glomerular Filt Rate > 60; Glucose Random 85 mg/dL (60-115); Potassium 3.9 mmol/l (3.3-5.1); Sodium 136 mmol/L (135-145); Total Protein 7.1 g/dL (6.5-8.0)
== END 2020-05-03 23:00 | disposition home or self-care (01) ==
PROVIDERS: Emergency Provider Emergency Medicine Emergency Medical Services
DX: O20.8 Other hemorrhage in early pregnancy (principal); R10.31 Right lower quadrant pain; Z3A.01 Less than 8 weeks gestation of pregnancy
CPT/HCPCS: 36415; 76801; 80053; 81001; 81003; 84702; 85025; 86900; 86901; 87086; 87088; 87186; 96360; 99283; 99284

== ENCOUNTER 2020-05-15 15:31 | Outpatient (REF) | payer MEDICAID, SELFPAY | END 2020-05-15 15:32 | disposition home or self-care (01) | LOC: HO.LAB 15:31 | PROVIDERS: Visit Provider Internal Medicine | DX: Z20.822 Contact with and (suspected) exposure to COVID-19 (principal) | CPT/HCPCS: 36415; C9803; U0003; U0005 ==

== ENCOUNTER → 2020-05-29 15:20 | Outpatient (BNVA) | payer MEDICAID, SELFPAY | PROVIDERS: Visit Provider Advanced Practice Midwife | DX: Z34.90 Encounter for supervision of normal pregnancy, unspecified, unspecified trimester (principal) | CPT/HCPCS: 99212 ==

== ENCOUNTER 2020-06-09 16:17 | Emergency (ER) | payer MEDICAID, SELFPAY ==
--- NOTE | ~2020-06-09 | US_ITS ---
EXAMINATION: US OBSTETRICAL ULTRASOUND US OBSTETRICAL LESS THAN 14 WEEKS CLINICAL INFORMATION: with pain. COMPARISON: OB ultrasound 05/03/2020. TECHNIQUE: Transabdominal and endovaginal ultrasound was performed. FINDINGS: A gestational sac is present in the uterus containing an active fetus with normal heartbeat of 156 bpm. The crown-rump length measures 6.15 cm consistent with an age of 12 weeks 5 days with an MARIBELL of 01/06/2021. By the patient's first ultrasound on 05/03/2020, MARIBELL would be 12/23/2020. The placenta is located anteriorly and placenta previa may be present as seen transabdominally. However, endovaginally, this finding is equivocal. The right ovary measures 4.0 x 2.2 x 2.1 cm and appears unremarkable. The left ovary measures 3.5 x 1.5 x 1.6 cm and appears unremarkable. No free fluid is present in the cul-de-sac. The cervix is closed. US/US OB transvaginal IMPRESSION: Normal-appearing fetus with mean gestational age by this ultrasound estimated at 12 weeks 5 days with an MARIBELL of 12/17/2020. There is a question of placenta previa. Follow up should be performed.
--- NOTE | ~2020-06-09 | US_ITS ---
EXAMINATION: US OBSTETRICAL ULTRASOUND US OBSTETRICAL LESS THAN 14 WEEKS CLINICAL INFORMATION: with pain. COMPARISON: OB ultrasound 05/03/2020. TECHNIQUE: Transabdominal and endovaginal ultrasound was performed. FINDINGS: A gestational sac is present in the uterus containing an active fetus with normal heartbeat of 156 bpm. The crown-rump length measures 6.15 cm consistent with an age of 12 weeks 5 days with an MARIBELL of 01/06/2021. By the patient's first ultrasound on 05/03/2020, MARIBELL would be 12/23/2020. The placenta is located anteriorly and placenta previa may be present as seen transabdominally. However, endovaginally, this finding is equivocal. The right ovary measures 4.0 x 2.2 x 2.1 cm and appears unremarkable. The left ovary measures 3.5 x 1.5 x 1.6 cm and appears unremarkable. No free fluid is present in the cul-de-sac. The cervix is closed. US/US OB <= 14 weeks fetus IMPRESSION: Normal-appearing fetus with mean gestational age by this ultrasound estimated at 12 weeks 5 days with an MARIBELL of 12/17/2020. There is a question of placenta previa. Follow up should be performed.
[2020-06-09 17:10] VITALS: BP 112/70; PULSE 95; RESP 18; TEMP 37; O2SAT 100; BMI 52.0
[2020-06-09 17:48] LABS: MANUAL DIFF FLAG NO
[2020-06-09 17:52] LABS: Basophils Percent Auto 0.6 % (0-2); Eosinophils Absolute Auto 0.2 X10*3/uL (0.0-0.4); Eosinophils Percent Auto 3.8 % (0-4); Hematocrit 32.6 % (37-47); Hemoglobin 10.8 g/dl (12.0-16.0); Imm Gran Abs Auto 0.02 X10*3/uL (0.00-0.03); Imm Gran Pct Auto 0.4 % (0.0-0.4); Lymphocytes Absolute Auto 1.6 X10*3/uL (1.2-4.9); Lymphocytes Percent Auto 29.5 % (20-40); Mean Corpuscular HGB Conc 33.1 g/dl (31.0-35.0); Mean Corpuscular Hemoglobin 31.1 pg (27.0-33.0); Mean Corpuscular Volume 93.9 fL (80-98); Mean Platelet Volume 10.5 fL (9.4-12.3); Monocytes Absolute Auto 0.6 X10*3/uL (0.1-1.2); Monocytes Percent Auto 11.1 % (2-11); Neutrophils Absolute Auto 2.9 X10*3/uL (2.0-8.3); Neutrophils Percent Auto 54.6 % (45-73); Platelet Count 254 X10*3/uL (160-400); Red Blood Count 3.47 X10*6/uL (4.20-5.50); Red Cell Distribution Width 14.2 % (11.0-16.0); White Blood Count 5.3 X10*3/uL (4.8-10.8)
[2020-06-09 18:23] LABS: Alanine Aminotransferase 9 U/L (0-31); Albumin Level 3.8 g/dL (3.5-5.0); Alkaline Phosphatase 43 U/L (39-117); Anion Gap 11 (12-20); Aspartate Amino Transferase 15 U/L (5-31); Bilirubin Total 0.3 mg/dL (0.0-1.0); Blood Urea Nitrogen 14 mg/dL (9-16); Calcium 8.5 mg/dL (8.4-10.2); Carbon Dioxide 25 mmol/L (22-29); Chloride 102 mmol/L (96-108); Creatinine Clr Calc Pharmacy 199.4; Estimated Glomerular Filt Rate > 60; Glucose Random 83 mg/dL (60-115); Potassium 3.6 mmol/L (3.3-5.1); Sodium 134 mmol/L (135-145); Total Protein 6.3 g/dL (6.5-8.0)
[2020-06-09 18:29] LABS: Glucose Urine UA 100 MG/DL (NEG); Leukocyte Esterase Urine NEG (NEG); Nitrite Urine NEG (NEG); Specific Gravity - Urine >= 1.030 (1.005-1.025); Urine Blood NEG (NEG); Urine Ketones NEG (NEG); Urine Protein NEG (NEG-TRACE)
[2020-06-09 18:38] LABS: Appearance Urine CLEAR; Color Urine YELLOW
[2020-06-09 20:00] VITALS: BP 112/65; PULSE 91; RESP 15; O2SAT 98
--- NOTE | 2020-06-09 21:23 | ED_ITS ---
HPI - General Chief complaint: Abdominal Pain Stated complaint: Abd pain/Vaginal pain 11 wks Time Seen by Provider: 06/09/20 21:08 Source: patient Mode of arrival: ambulatory History of Present Illness HPI Narrative: This is a 19-year-old female EGA 11 weeks/6 days without significant past medical history who presents with lower abdominal pain that started yesterday that is described as being sharp in nature across the lower abdomen. Patient denies any associated fevers, chills and the vomiting that she reports she states has been ongoing since she found out she was . Patient has continued having regular soft bowel movements last of which was today and denies any urinary pain/burning/frequency. 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 Otherwise, she denies any cramping discomfort and states that the pain has increased and describes maximal at 8/10. She denies any trauma. Related Data Previous Rx's Medication Instructions Recorded cefpodoxime 100 mg PO BID #14 tab 04/28/20 prenat.vits,daniel,pdr-bbev-deaiy 1 tab PO DAILY #60 tab 04/28/20 pyridoxine (vitamin B6) 25 mg PO TID #30 tab 04/28/20 PNV 153-FA 400 mcg-om3 35 mg-dha 1 tab PO DAILY #30 tab 05/29/20 25 mg-epa 5 mg-fish oil chew tablet Allergies Allergy/AdvReac Type Severity Reaction Status Date / Time No Known Allergies Allergy Verified 06/09/20 17:10 [No Known Allergies*] Review of Systems Review of Systems: Pertinent positives and negatives as stated in HPI 10 point review of systems is otherwise negative. PMFSH Past Medical History Source: nursing notes reviewed Medical History Healthy female Social History Social History Alcohol intake: never Smoking Status: Smoker, status unknown Use of substances other than those prescribed or required for medical reasons: No Advance Directives: No Advance Directives Information Provided: Yes Physical Exam Vital Signs: Vital Signs: Last Vital Signs Temp 98.6 F 06/09/20 17:10 Pulse 91 06/10/20 00:00 Resp 15 06/10/20 00:00 BP 115/76 06/10/20 00:00 Pulse Ox 99 06/10/20 00:00 Body Mass Index 52.0 VITAL SIGNS: Reviewed. GENERAL: Well developed, well nourished, in no acute distress. HEAD: Normocephalic/atraumatic, EYES: PERRLA, EOMI NOSE: Nares patent bilateral OROPHARYNX: no oral lesions noted, posterior pharynx clear NECK: Supple, no adenopathy LUNGS: Normal breath sounds. No adventitious sounds or accessory muscle use. SpO2<98> CARDIOVASCULAR: Regular rate and rhythm without noted murmurs ABDOMEN: Gravid, Soft, tender to palpation in right lower quadrant more than left lower quadrant without rebound, non-distended with bowel sounds. NEUROLOGIC: Alert and oriented x 4. Course Course Course Narrative: This is a 19-year-old female with history and clinical presentation concerning for possible UTI, appendicitis, STI and less likely constipation or gastroenteritis. -labs, UA, ultrasound On review of all investigations there is no leukocytosis and anemia is likely secondary to with a negative UA. On review of remaining investigations there is no leukocytosis/left shift and ultrasound does not demonstrate any free pelvic fluid in the abdomen thus low clinical suspicion for appendicitis. Ultrasound demonstrates some suspicion for placenta previa which was communicated with the patient and she was instructed to follow-up with her OB physician (Linda Steve). Otherwise, patient was discharged in stable condition tolerating p.o. with resolution of symptoms and strongly encouraged to return if any symptoms worsen or she develops fevers, chills. MDM - OB/Uterine Contractions Lab Data Result diagrams: 06/09/20 17:27 06/09/20 17:27 Labs: Lab Results 06/09/20 06/09/20 06/09/20 Range/Units 17:27 17:27 17:27 WBC 5.3 (4.8-10.8) X10*3/uL RBC 3.47 L (4.20-5.50) X10*6/uL Hgb 10.8 L (12.0-16.0) g/dl Hct 32.6 L (37-47) % MCV 93.9 (80-98) fL MCH 31.1 (27.0-33.0) pg MCHC 33.1 (31.0-35.0) g/dl RDW 14.2 (11.0-16.0) % Plt Count 254 (160-400) X10*3/uL MPV 10.5 (9.4-12.3) fL Immature Gran % (Auto) 0.4 (0.0-0.4) % Neut % (Auto) 54.6 (45-73) % Lymph % (Auto) 29.5 (20-40) % [place] % (Auto) 11.1 H (2-11) % Eos % (Auto) 3.8 (0-4) % Baso % (Auto) 0.6 (0-2) % Lymph # (Auto) 1.6 (1.2-4.9) X10*3/uL [place] # (Auto) 0.6 (0.1-1.2) X10*3/uL Eos # (Auto) 0.2 (0.0-0.4) X10*3/uL Baso # (Auto) 0.0 (0.0-0.2) X10*3/uL Abs Immat Gran (auto) 0.02 (0.00-0.03) X10*3/uL Absolute Neuts (auto) 2.9 (2.0-8.3) X10*3/uL Absolute Nucleated RBC 0.000 (0.0-0.012) X10*3/uL Nucleated RBC % (auto) 0.0 (0.0-0.2) /100WBC Hold Blue Top SEE NOTE Sodium 134 L (135-145) mmol/L Potassium 3.6 (3.3-5.1) mmol/L Chloride 102 (96-108) mmol/L Carbon Dioxide 25 (22-29) mmol/L Anion Gap 11 L (12-20) BUN 14 D (9-16) mg/dL Creatinine 0.58 (0.5-1.4) mg/dL Estim Creat Clear Calc 199.4 Estimated GFR > 60 Random Glucose 83 (60-115) mg/dL Calcium 8.5 D (8.4-10.2) mg/dL Total Bilirubin 0.3 (0.0-1.0) mg/dL AST 15 (5-31) U/L ALT 9 (0-31) U/L Alkaline Phosphatase 43 (39-117) U/L Total Protein 6.3 L (6.5-8.0) g/dL Albumin 3.8 (3.5-5.0) g/dL Beta HCG, Quant Cancelled Urine Color Urine Appearance Urine pH (5.0-8.0) Ur Specific [place] (1.005-1.025) Urine Protein (NEG-TRACE) MG/DL Urine Glucose (UA) (NEG) MG/DL Urine Ketones (NEG) MG/DL Urine Blood (NEG) Urine Nitrite (NEG) Ur Leukocyte Esterase (NEG) 06/09/20 06/09/20 Range/Units 17:27 17:27 WBC (4.8-10.8) X10*3/uL RBC (4.20-5.50) X10*6/uL Hgb (12.0-16.0) g/dl Hct (37-47) % MCV (80-98) fL MCH (27.0-33.0) pg MCHC (31.0-35.0) g/dl RDW (11.0-16.0) % Plt Count (160-400) X10*3/uL MPV (9.4-12.3) fL Immature Gran % (Auto) (0.0-0.4) % Neut % (Auto) (45-73) % Lymph % (Auto) (20-40) % [place] % (Auto) (2-11) % Eos % (Auto) (0-4) % Baso % (Auto) (0-2) % Lymph # (Auto) (1.2-4.9) X10*3/uL [place] # (Auto) (0.1-1.2) X10*3/uL Eos # (Auto) (0.0-0.4) X10*3/uL Baso # (Auto) (0.0-0.2) X10*3/uL Abs Immat Gran (auto) (0.00-0.03) X10*3/uL Absolute Neuts (auto) (2.0-8.3) X10*3/uL Absolute Nucleated RBC (0.0-0.012) X10*3/uL Nucleated RBC % (auto) (0.0-0.2) /100WBC Hold Blue Top Sodium (135-145) mmol/L Potassium (3.3-5.1) mmol/L Chloride (96-108) mmol/L Carbon Dioxide (22-29) mmol/L Anion Gap (12-20) BUN (9-16) mg/dL Creatinine (0.5-1.4) mg/dL Estim Creat Clear Calc Estimated GFR Random Glucose (60-115) mg/dL Calcium (8.4-10.2) mg/dL Total Bilirubin (0.0-1.0) mg/dL AST (5-31) U/L ALT (0-31) U/L Alkaline Phosphatase (39-117) U/L Total Protein (6.5-8.0) g/dL Albumin (3.5-5.0) g/dL Beta HCG, Quant [id number] Urine Color YELLOW Urine Appearance CLEAR Urine pH 6.0 (5.0-8.0) Ur Specific [place] >= 1.030 H (1.005-1.025) Urine Protein NEG (NEG-TRACE) MG/DL Urine Glucose (UA) 100 H (NEG) MG/DL Urine Ketones NEG (NEG) MG/DL Urine Blood NEG (NEG) Urine Nitrite NEG (NEG) Ur Leukocyte Esterase NEG (NEG) Discharge Plan Discharge Clinical Impression: Nausea and vomiting during , Abdominal pain affecting Patient Disposition: Home, Self-Care Instructions: Nausea and Vomiting in (ED), Abdominal Pain in Pregn eligio (ED) Additional Instructions: Please resume all medications provided for your nausea and vomiting during . Follow-up with Linda Steve in the morning by calling the office for re- evaluation. Do not hesitate to return should he develop any acute worsening of your symptoms especially if accompanied by vaginal bleeding, fevers, chills. Prescriptions: No Action pyridoxine (vitamin B6) 25 mg tablet 25 mg PO TID Qty: 30 RF: 0 prenat.vits,daniel,fuj-cpqs-bbekw Tablet 1 tab PO DAILY Qty: 60 RF: 0 cefpodoxime 100 mg tablet 100 mg PO BID Qty: 14 RF: 0 Gummies 400 mcg-35 mg- 25 mg-5 mg tablet,chewable 1 tab PO DAILY Qty: 30 RF: 11 Referrals: Linda Steve CNM [Certified Nurse Balloon Artist] - 2 days (Re-evaluation after being seen in the emergency department. Overall negative workup, ultrasound concerning for possible placenta previa which radiology is recommending further evaluation.)
[2020-06-09] MEDS: 0.9 % Sodium Chloride 2,000 ML 999 ML IV (21:29)
[2020-06-09 22:00] VITALS: BP 129/86; PULSE 85; RESP 15; O2SAT 99
[2020-06-10] VITALS: BP 115/76; PULSE 91; RESP 15; O2SAT 99
[2020-06-10] MEDS: ondansetron HCL 4 MG/2 ML VIAL IVPUSH (00:05)
[2020-06-10] MEDS: Acetaminophen 325 MG TABLET 975 MG PO (00:48)
== END 2020-06-10 01:59 | disposition home or self-care (01) ==
PROVIDERS: Emergency Provider Student in an Organized Health Care Education/Training Program
DX: O21.9 Vomiting of pregnancy, unspecified (principal); O26.891 Other specified pregnancy related conditions, first trimester; R10.30 Lower abdominal pain, unspecified; Z3A.11 11 weeks gestation of pregnancy
CPT/HCPCS: 36415; 76801; 76817; 80053; 81003; 84702; 85025; 96360; 96361; 96375; 96376; 99284; J2405

== ENCOUNTER → 2020-06-13 14:04 | Outpatient (BNVA) | payer MEDICAID, SELFPAY | PROVIDERS: Visit Provider Advanced Practice Midwife | CPT/HCPCS: 99212 ==

== ENCOUNTER 2020-06-20 14:02 | Outpatient (REF) | payer MEDICAID, SELFPAY ==
--- NOTE | ~2020-06-20 | US_ITS ---
EXAMINATION: OBSTETRICAL ULTRASOUND, FIRST TRIMESTER HISTORY: 19-year-old at the 13.3 weeks of gestation NT screening COMPARISON: 06/09/2020 TECHNIQUE: Real time transabdominal imaging with color and M-mode Doppler. FINDINGS: A single, live IUP CRL of 81.1 mm c/w O.1wks is noted. Heart Rate: 156 beats per minute. Normal yolk sac seen. NT was 1.43.mm. NB Present The embryo appears sonographically wnl for this GA. Both maternal ovaries are seen and appear normal. GESTATIONAL AGE: 1. Established GA: 13.3 wks 2. GA from AUA: 14.1 wks ESTIMATED DATE OF DELIVERY: 1. Established MARIBELL: 12/23/2020 2. MARIBELL from AUA: 12/18/2020 US/US OB 1T nuc measure IMPRESSION: 1. A single live IUP 2. Size equals dates 3. NT of 1.43 mm MFM Consultation: I reviewed the ultrasound findings along with significance of NT measurement. The NT of less than 3mm is generally reassuring. However, the sensitivity for T21 detection is only 60%. I reviewed the availability of serum aneuploidy screening which includes cell-free DNA and placental protein based tests. I discussed the sensitivity, false-positive rate, and other limitations associated with each test. I also reviewed the availability of invasive diagnostic tests that are associated small but definite risk of miscarriage. We also reviewed the differences between screening tests and diagnostic tests. After our discussion, she opted for the First trimester screening that is based on cell-free DNA or non-invasive testing (NIPT). The result will be faxed to your office in approximately 7 days. A follow up at 18 weeks for survey has been scheduled. Thank you very much for this referral. Total time 20 minutes. The time spent was devoted to counseling the patient about the disease and diagnosis, coordinating care including reviewing her records, pertinent lab data and studies, as well as discussing diagnostic evaluation and workup, plan therapeutic interventions and future disposition of care. This includes any additional research needed to obtain further information in formulating the plan of care of this patient. This note was generated with a voice recognition program. Please excuse any errors which may have been overlooked during my review of this note. Sometimes these errors may affect the content or meaning of a given sentence.
[2020-06-20 17:19] LABS: Basophils Percent Auto 0.6 % (0-2); Eosinophils Percent Auto 1.2 % (0-4); Hematocrit 32.3 % (37-47); Hemoglobin 10.4 g/dl (12.0-16.0); Imm Gran Abs Auto 0.01 X10*3/uL (0.00-0.03); Imm Gran Pct Auto 0.3 % (0.0-0.4); Lymphocytes Absolute Auto 0.6 X10*3/uL (1.2-4.9); Lymphocytes Percent Auto 17.7 % (20-40); MANUAL DIFF FLAG SCAN; Mean Corpuscular HGB Conc 32.2 g/dl (31.0-35.0); Mean Corpuscular Hemoglobin 30.4 pg (27.0-33.0); Mean Corpuscular Volume 94.4 fL (80-98); Mean Platelet Volume 10.7 fL (9.4-12.3); Monocytes Absolute Auto 0.6 X10*3/uL (0.1-1.2); Monocytes Percent Auto 18.6 % (2-11); Neutrophils Absolute Auto 2.1 X10*3/uL (2.0-8.3); Neutrophils Percent Auto 61.6 % (45-73); Platelet Count 238 X10*3/uL (160-400); Red Blood Count 3.42 X10*6/uL (4.20-5.50); Red Cell Distribution Width 14.3 % (11.0-16.0); SCAN SMEAR FLAG 1; White Blood Count 3.5 X10*3/uL (4.8-10.8)
[2020-06-20 17:44] LABS: Amphetamine Screen Urine Not Detected (Not Detect); Barbiturates, Urine Not Detected (Not Detect); Benzodiazepines Screen Urine Not Detected (Not Detect); Cannabinoid Screen Urine Not Detected (Not Detect); Cocaine Screen Urine Not Detected (Not Detect); Opiate Screen Urine Not Detected (Not Detect); Phencyclidine Screen Urine Not Detected (Not Detect)
[2020-06-20 17:49] LABS: SLIDE REVIEW VERIFIED
[2020-06-20 18:03] LABS: Syphilis Screen Nonreactive (Nonreactive)
[2020-06-23 21:37] LABS: Rubella IgG Antibody 4.55 Index
[2020-06-25 08:01] LABS: HIV AB/AG Nonreactive (Nonreactive); HIV Num 1 0.05 S/CO (0.00-0.99)
[2020-06-25 08:23] LABS: HBsAGNum1 0.14 S/CO (0.00-0.99); Hepatitis B Surface Antigen Negative (Negative); ~HepC Num1 0.11 S/CO (0.00-0.79); ~Hepatitis C Antibody Nonreactive (Nonreactive)
== END 2020-06-20 14:03 | disposition home or self-care (01) ==
LOC: HO.US 14:02
PROVIDERS: Visit Provider Advanced Practice Midwife
DX: O20.0 Threatened abortion (principal); O23.42 Unspecified infection of urinary tract in pregnancy, second trimester; O99.612 Diseases of the digestive system complicating pregnancy, second trimester; K11.7 Disturbances of salivary secretion; O99.012 Anemia complicating pregnancy, second trimester; D64.9 Anemia, unspecified; O26.892 Other specified pregnancy related conditions, second trimester; N89.8 Other specified noninflammatory disorders of vagina; Z36.82 Encounter for antenatal screening for nuchal translucency; Z3A.14 14 weeks gestation of pregnancy; Z91.14 Patient's other noncompliance with medication regimen
CPT/HCPCS: 76813; 80307; 81003; 85025; 86762; 86780; 86787; 86803; 86850; 86900; 86901; 87086; 87088; 87186; 87340; 87389; 99212

== ENCOUNTER 2020-06-20 15:56 | Outpatient (REF) | payer MEDICAID, SELFPAY ==
[2020-06-21 13:15] LABS: CT PCR NOT DETECTED (Not Detect.); NG PCR NOT DETECTED (Not Detect.)
[2020-06-21 13:26] LABS: BV Int Neg Control Negative (Negative); BV Int Pos Control Positive (Positive)
== END 2020-06-20 15:57 | disposition home or self-care (01) ==
LOC: HO.LAB 15:56
PROVIDERS: Visit Provider Advanced Practice Midwife
DX: O23.40 Unspecified infection of urinary tract in pregnancy, unspecified trimester (principal); O26.899 Other specified pregnancy related conditions, unspecified trimester; N89.8 Other specified noninflammatory disorders of vagina; O20.0 Threatened abortion; Z36.82 Encounter for antenatal screening for nuchal translucency; Z3A.00 Weeks of gestation of pregnancy not specified
CPT/HCPCS: 87480; 87491; 87510; 87591; 87660

== ENCOUNTER 2020-06-24 14:05 | Outpatient (REF) | payer MEDICAID, SELFPAY | END 2020-06-24 14:06 | disposition home or self-care (01) | LOC: HO.LAB 14:05 | PROVIDERS: Visit Provider Internal Medicine | DX: Z20.822 Contact with and (suspected) exposure to COVID-19 (principal) | CPT/HCPCS: 36415; C9803; U0003; U0005 ==

== ENCOUNTER → 2020-06-27 14:59 | Outpatient (BNVA) | payer MEDICAID, SELFPAY | PROVIDERS: Visit Provider Advanced Practice Midwife | DX: Z13.89 Encounter for screening for other disorder (principal) | CPT/HCPCS: 99212 ==

== ENCOUNTER → 2020-07-18 15:24 | Outpatient (BNVA) | payer MEDICAID, SELFPAY | PROVIDERS: Visit Provider Advanced Practice Midwife | DX: Z34.92 Encounter for supervision of normal pregnancy, unspecified, second trimester (principal); Z3A.17 17 weeks gestation of pregnancy | CPT/HCPCS: 81003; 99212 ==

== ENCOUNTER 2020-07-20 11:22 | Emergency (ER) | payer MEDICAID, SELFPAY ==
--- NOTE | ~2020-07-20 | MR_ITS ---
EXAMINATION: MR ABDOMEN AND PELVIS WITHOUT CONTRAST CLINICAL INFORMATION: Right lower quadrant abdominal pain. Rule out appendectomy COMPARISON: Ultrasound earlier the same day TECHNIQUE: Multiplanar MR images of the abdomen and pelvis were performed without gadolinium contrast. No contrast was administered. FINDINGS: LUNG BASES: No focal consolidation or pleural effusion at the lung bases. Normal heart size. LIVER, GALLBLADDER, AND BILIARY TREE: Limited noncontrast evaluation of the liver is normal. No focal lesion or biliary ductal dilatation. Gallbladder is normal in appearance. No gallstones seen. PANCREAS: Normal size and signal. SPLEEN: Normal size. No focal lesion seen. ADRENAL GLANDS: No adrenal mass. KIDNEYS AND URETERS: There is right-sided hydroureteronephrosis with the dilated ureter followed to the upper pelvis, coronal series 4 image 17/35. No left hydronephrosis or hydroureter. GASTROINTESTINAL TRACT: Stomach and small bowel are nondilated. Although the appendix is not seen, there are no right lower quadrant inflammatory changes to suggest acute appendicitis. No colonic wall thickening. ABDOMINAL WALL: No significant hernia is appreciated. LYMPH NODES: No retroperitoneal lymphadenopathy. VASCULAR: Normal caliber abdominal aorta. OSSEOUS STRUCTURES: No acute osseous abnormality. PELVIS: UTERUS: Single intrauterine noted. Amniotic fluid volume is within normal limits. Anterior placenta. Breech presentation. The cervix is closed. Dedicated evaluation of anatomy was not performed. OVARIES: No adnexal mass seen. Normal-appearing right ovary likely identified in sagittal series 7 image 31/38. BLADDER: Moderately distended. OSSEOUS STRUCTURES: Mild convex left lumbar scoliosis. Normal appearance of the hips and sacroiliac joints. No ascites or free fluid. MR/MR abdomen wo con IMPRESSION: The appendix is not seen; there are no right lower quadrant inflammatory changes to suggest acute appendicitis. There is right-sided hydroureteronephrosis with the dilated ureter followed to the upper pelvis where it contacts the enlarged gravid uterus, suggesting this may be due to physiologic/mechanical compression. Consider correlation with urinalysis to exclude hematuria as a stone would not be visible by MRI. Limited evaluation of the single intrauterine with no abnormality identified.
--- NOTE | ~2020-07-20 | US_ITS ---
EXAMINATION: US ABDOMEN COMPLETE CLINICAL INFORMATION: Right-sided abdominal pain. COMPARISON: None TECHNIQUE: Real-time imaging of the abdominal viscera. FINDINGS: PANCREAS: Normal. ABDOMINAL AORTA: The proximal, mid, and distal segments are normal in caliber. INFERIOR VENA CAVA: Visualized portions are normal. LIVER: Normal. The liver is normal in size. The liver contour is normal. Parenchymal echogenicity is normal. No focal hepatic lesion. There is no intrahepatic biliary duct dilatation seen. GALLBLADDER: Normal. The gallbladder is physiologically distended without evidence of stones, sludge, polyps, wall thickening or pericholecystic fluid. COMMON BILE DUCT: Normal in caliber measuring 0.5 cm in diameter. RIGHT KIDNEY: Normal. Mild fullness of the renal pelvis is likely related to the and enlarged uterus. No hydronephrosis. No renal calculi or focal parenchymal lesions. The kidney measures 10.3 cm in maximum dimension. LEFT KIDNEY: Normal. No hydronephrosis. No renal calculi or focal parenchymal lesions. The kidney measures 11.0 cm in maximum dimension. SPLEEN: Normal. The spleen measures 10.6 cm in maximum dimension. FREE FLUID: None. US/US abdomen complete IMPRESSION: Mild fullness of the right renal pelvis is likely related to the enlarged uterus. Otherwise unremarkable study.
--- NOTE | ~2020-07-20 | US_ITS ---
EXAMINATION: US OBSTETRICAL GREATER THAN 14 WEEKS CLINICAL INFORMATION: Right-sided pain. Report of ultrasound 06/20/20 is live single IUP. Size equal dates. COMPARISON: Report of ultrasound 06/20/20 TECHNIQUE: Obstetrical ultrasound. Assess well-being FINDINGS: There is a live single intra-uterine gestation. Presentation: Breech Placenta location: Anterior Amniotic fluid volume: Normal motion: Present Measurements include: biometrics were not repeated. heart rate is 146 beats per minute. Best estimated gestational age based upon previous ultrasound is 17 weeks 5 days. biometrics were not repeated The best estimated weight: Not documented Biophysical profile: Not performed. Calculated amniotic fluid index is not calculated. Survey: Full survey was not performed. The region of the kidneys, urinary bladder, stomach and transverse view of the heart were obtained and appear within normal limits US/US OB <= 14 weeks fetus IMPRESSION: There is a live single which uterine gestation. tone and motion were documented. Regular cardiac activity No suspicious right adnexal mass or collection.
[2020-07-20 12:16] VITALS: BP 110/59; PULSE 98; RESP 18; TEMP 37.3; O2SAT 97; BMI 23.6
[2020-07-20 12:44] LABS: Glucose Urine UA NEG (NEG); Leukocyte Esterase Urine 1+ (NEG); Nitrite Urine POS (NEG); PH 7.5 (5.0-8.0); Specific Gravity - Urine 1.025 (1.005-1.025); UACC Culture Trigger YES; Urine Blood 3+ (NEG); Urine Ketones NEG (NEG); Urine Protein 2+ MG/DL (NEG-TRACE)
[2020-07-20 12:47] LABS: Appearance Urine CLOUDY; Color Urine YELLOW
[2020-07-20 13:00] LABS: Bacteria Urine 3+ /LPF; Squamous Epithelial Cell Urine 2+ /LPF; WBC Urine TNTC /HPF (0-4)
[2020-07-20 14:10] VITALS: BP 107/60; PULSE 94; RESP 15; TEMP 36.9; O2SAT 99
[2020-07-20] MEDS: 0.9 % Sodium Chloride 1,000 ML 999 ML IV ×3 (15:35→20:14)
[2020-07-20 15:40] LABS: MANUAL DIFF FLAG NO
[2020-07-20 15:41] LABS: Basophils Percent Auto 0.1 % (0-2); Eosinophils Percent Auto 0.3 % (0-4); Hematocrit 28.8 % (37-47); Hemoglobin 9.6 g/dl (12.0-16.0); Imm Gran Abs Auto 0.02 X10*3/uL (0.00-0.03); Imm Gran Pct Auto 0.3 % (0.0-0.4); Lymphocytes Absolute Auto 0.9 X10*3/uL (1.2-4.9); Lymphocytes Percent Auto 12.8 % (20-40); Mean Corpuscular HGB Conc 33.3 g/dl (31.0-35.0); Mean Corpuscular Hemoglobin 31.9 pg (27.0-33.0); Mean Corpuscular Volume 95.7 fL (80-98); Mean Platelet Volume 10.2 fL (9.4-12.3); Monocytes Absolute Auto 0.6 X10*3/uL (0.1-1.2); Monocytes Percent Auto 8.2 % (2-11); Neutrophils Absolute Auto 5.3 X10*3/uL (2.0-8.3); Neutrophils Percent Auto 78.3 % (45-73); Platelet Count 232 X10*3/uL (160-400); Red Blood Count 3.01 X10*6/uL (4.20-5.50); Red Cell Distribution Width 14.2 % (11.0-16.0); White Blood Count 6.8 X10*3/uL (4.8-10.8)
[2020-07-20] MEDS: cefTRIAXone sodium 1 GM in 0.9 % Sodium Chloride 50 ML IV (15:44)
[2020-07-20 15:58] LABS: Lactic Acid 1.3 mmol/L (0.5-2.0)
[2020-07-20 16:02] LABS: Alanine Aminotransferase 8 U/L (0-31); Albumin Level 3.4 g/dL (3.5-5.0); Alkaline Phosphatase 51 U/L (39-117); Anion Gap 12 (12-20); Aspartate Amino Transferase 10 U/L (5-31); Bilirubin Total 0.3 mg/dL (0.0-1.0); Blood Urea Nitrogen 8 mg/dL (9-16); Calcium 8.4 mg/dL (8.4-10.2); Carbon Dioxide 22 mmol/L (22-29); Chloride 105 mmol/L (96-108); Creatinine Clr Calc Pharmacy 114.4; Estimated Glomerular Filt Rate > 60; Glucose Random 87 mg/dL (60-115); Potassium 3.4 mmol/L (3.3-5.1); Sodium 136 mmol/L (135-145)
[2020-07-20 16:35] LABS: HCG Quantitative 18051 mIU/mL
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
[2020-07-20] MEDS: Acetaminophen 325 MG TABLET 975 MG PO (17:25)
[2020-07-20 19:44] VITALS: BP 110/66; PULSE 106; RESP 16; TEMP 38.6; O2SAT 100
[2020-07-20 19:48] LABS: COVID-19 Test Negative (Negative); IDNOW Serial# 9DD0AD1C
--- NOTE | 2020-07-20 20:25 | PC.NURSE ---
PT REPORT GIVEN TO RN AT [facility]. EMS ALS TRANSFERRED PATIENT AT 20 :25.
== END 2020-07-20 21:07 | disposition short-term general hospital (02) ==
PROVIDERS: Nurse Practitioner Primary Care; Emergency Provider Emergency Medicine
DX: O23.42 Unspecified infection of urinary tract in pregnancy, second trimester (principal); O26.892 Other specified pregnancy related conditions, second trimester; R10.31 Right lower quadrant pain; Z3A.17 17 weeks gestation of pregnancy
CPT/HCPCS: 36415; 74181; 76700; 76801; 80053; 81001; 81003; 83605; 84702; 85025; 87040; 87086; 87088; 87186; 87635; 96361; 96365; 99285; J0696

== ENCOUNTER 2020-08-01 11:40 | Outpatient (REF) | payer MEDICAID, SELFPAY ==
--- NOTE | ~2020-08-01 | US_ITS ---
EXAMINATION: US OBSTETRICAL CLINICAL INFORMATION: 19-year-old at 19.3 weeks of gestation Screening for anomaly COMPARISON: 07/20/2020 TECHNIQUE: Real-time transabdominal ultrasound was performed using C1-5 megahertz transducer. FINDINGS: A single, active, fetus is seen in vertex presentation. The placenta is anterior, and the amniotic fluid volume is wnl. MEASUREMENTS: 1. Biparietal Diameter: 4.4 cm; 19.3 wks 2. Occipital Frontal Diameter: 5.5 cm 3. Head Circumference: 15.9 cm; 18.6 wks 4. Abdominal Circumference: 14.0 cm; 19.3 wks 5. Femur Length: 2.9 cm; 19.0 wks 6. Humerus Length: 2.76 cm; 18.6 wks 7. Tibia Length: 2.6 cm; 19.3 wks 8. Ulna Length: 2.5 cm; 19.0 wks 9. Lateral ventricle: 0.6 cm 10. Cerebellum: 1.93 cm; 19.6 wks 11. Cisterna Magna: 0.34 cm 12. Nuchal Fold: 3.0 mm 13. Heart Rate: 146 beats per minute Rt ovary: Unable to visualize Lt ovary: normal Cervical length 4.7 cm on T/A. GESTATIONAL AGE: 1. Established GA: 19.3 wks 2. GA from [facility]: 19.2 wks ESTIMATED DATE OF DELIVERY: 1. Established MARIBELL: 12/23/2020 2. MARIBELL from [facility]: 12/24/2020 ANATOMY: The visualized anatomy includes but not limited to: 1. Cranium: Normal 2. Intracranial anatomy: cavum septum pellucidi, lateral ventricles, choroid plexus, cerebellum, posterior fossa, third and fourth ventricles. 3. face: orbits, lip/palate, profile, nasal bone 4. Heart: four-chamber view of the heart, ventricular septum, foramen ovale, pulmonary vein, left and right outflow tracts, three-vessel view, 3 vessel trachea view, aortic and ductal arches, situs.. 5. Diaphragm: Normal 6. Abdominal wall: Normal 7. Cord Insertion: Normal 8. Spine: Cervical, thoracic, lumbar, sacral. 9. Stomach: Normal size and shape 10. Right Kidney: Normal 11. Left Kidney: Normal 12. 3 vessel cord: Normal 13. Upper extremity: Open hands, fifth digit. 14. Lower extremity: Tibia, fibula, bilateral feet. 15. Bladder: Normal 16. Genitalia: Female, patient not aware US/US OB /maternal detail IMPRESSION: 1. Single, living, intrauterine with appropriate biometry. 2. Normal survey DISCUSSION: I reviewed today's ultrasound findings. We discussed the limitations of ultrasound in diagnosing aneuploidy and other congenital abnormalities. I reviewed the differences between screening test and diagnostic test. Amniocentesis was discussed and declined. She was informed that the baseline incidence of congenital abnormalities is approximately 3-5%. Not all these conditions are diagnosable in utero. RECOMMENDATIONS: 1. Follow-up when necessary. Thank you for allowing me to participate in her care. Total time 20 minutes. The time spent was devoted to counseling the patient about the disease and diagnosis, coordinating care including reviewing her records, pertinent lab data and studies, as well as discussing diagnostic evaluation and workup, plan therapeutic interventions and future disposition of care. This includes any additional research needed to obtain further information in formulating the plan of care of this patient. This note was generated with a voice recognition program. Please excuse any errors which may have been overlooked during my review of this note. Sometimes these errors may affect the content or meaning of a given sentence.
== END 2020-08-01 11:41 | disposition home or self-care (01) ==
LOC: HO.US 11:40
PROVIDERS: Visit Provider Advanced Practice Midwife
DX: Z36.3 Encounter for antenatal screening for malformations (principal); O98.512 Other viral diseases complicating pregnancy, second trimester; U07.1 COVID-19; K11.7 Disturbances of salivary secretion
CPT/HCPCS: 76811

== ENCOUNTER → 2020-08-15 14:38 | Outpatient (BNVA) | payer MEDICAID, SELFPAY | PROVIDERS: Visit Provider Advanced Practice Midwife | DX: O23.02 Infections of kidney in pregnancy, second trimester (principal); Z3A.21 21 weeks gestation of pregnancy | CPT/HCPCS: 81003; 99212 ==

== ENCOUNTER → 2020-09-12 14:40 | Outpatient (BNVA) | payer MEDICAID, SELFPAY | PROVIDERS: Visit Provider Advanced Practice Midwife | DX: Z34.92 Encounter for supervision of normal pregnancy, unspecified, second trimester (principal); Z3A.25 25 weeks gestation of pregnancy | CPT/HCPCS: 99212 ==

== ENCOUNTER → 2020-10-03 14:42 | Outpatient (BNVA) | payer MEDICAID, SELFPAY | PROVIDERS: Visit Provider Advanced Practice Midwife | DX: Z34.93 Encounter for supervision of normal pregnancy, unspecified, third trimester (principal); Z3A.28 28 weeks gestation of pregnancy | CPT/HCPCS: 81003; 99212 ==

== ENCOUNTER 2020-10-16 14:51 | Outpatient (REF) | payer MEDICAID, SELFPAY ==
[2020-10-16 17:05] LABS: Hematocrit 32.2 % (37-47); Mean Corpuscular HGB Conc 31.1 g/dl (31.0-35.0); Mean Corpuscular Hemoglobin 28.4 pg (27.0-33.0); Mean Corpuscular Volume 91.5 fL (80-98); Mean Platelet Volume 10.2 fL (9.4-12.3); Platelet Count 288 X10*3/uL (160-400); Red Blood Count 3.52 X10*6/uL (4.20-5.50); Red Cell Distribution Width 13.6 % (11.0-16.0)
[2020-10-16 17:26] LABS: Glucose 1 Hour PP 50gm Dose 108 mg/dL (60-140)
[2020-10-17 07:50] LABS: Syphilis Screen Nonreactive (Nonreactive)
[2020-10-17 08:32] LABS: HBsAGNum1 0.49 S/CO (0.00-0.99); HIV AB/AG Nonreactive (Nonreactive); HIV Num 1 0.05 S/CO (0.00-0.99); Hepatitis B Surface Antigen Negative (Negative); ~HepC Num1 0.16 S/CO (0.00-0.79); ~Hepatitis C Antibody Nonreactive (Nonreactive)
== END 2020-10-16 14:52 | disposition home or self-care (01) ==
LOC: HO.LAB 14:51
PROVIDERS: Advanced Practice Midwife; Visit Provider Obstetrics & Gynecology
DX: Z34.93 Encounter for supervision of normal pregnancy, unspecified, third trimester (principal); Z3A.30 30 weeks gestation of pregnancy
CPT/HCPCS: 36415; 85027; 86780; 86803; 87340; 87389; 99212

== ENCOUNTER → 2020-10-30 15:17 | Outpatient (BNVA) | payer MEDICAID, SELFPAY | PROVIDERS: Visit Provider Advanced Practice Midwife | DX: Z34.93 Encounter for supervision of normal pregnancy, unspecified, third trimester (principal); Z3A.32 32 weeks gestation of pregnancy | CPT/HCPCS: 99212 ==

== ENCOUNTER → 2020-11-19 08:12 | Outpatient (BNVA) | payer MEDICAID, SELFPAY | PROVIDERS: Visit Provider Advanced Practice Midwife | DX: O36.8130 Decreased fetal movements, third trimester, not applicable or unspecified (principal); Z3A.35 35 weeks gestation of pregnancy | CPT/HCPCS: 59025; 81003; 99212 ==

== ENCOUNTER 2020-11-26 14:31 | Outpatient (REF) | payer MEDICAID, SELFPAY ==
[2020-11-27 09:32] LABS: CT PCR NOT DETECTED (Not Detect.); NG PCR NOT DETECTED (Not Detect.)
== END 2020-11-26 14:32 | disposition home or self-care (01) ==
LOC: HO.LAB 14:31
PROVIDERS: Visit Provider Advanced Practice Midwife
DX: O32.1XX0 Maternal care for breech presentation, not applicable or unspecified (principal)
CPT/HCPCS: 81003; 87081; 87147; 87491; 87591; 99212

== ENCOUNTER 2020-11-28 10:09 | Outpatient (REF) | payer MEDICAID, SELFPAY ==
--- NOTE | ~2020-11-28 | US_ITS ---
EXAMINATION: OBSTETRICAL ULTRASOUND, Follow up HISTORY: 20-year-old at the 36.3 weeks of gestation Unstable lie Size date discrepancy COMPARISON: 08/01/2020 TECHNIQUE: Real time transabdominal imaging with color and M-mode Doppler. PRESENTATION: Vertex PLACENTA LOCATION: Anterior without previa AMNIOTIC FLUID: RAMSES 13.0 cm MEASUREMENTS: 1. Biparietal Diameter: 8.5 cm; 34.2 wks 2. Head Circumference: 32.3 cm; 36.4 wks 3. Abdominal Circumference: 32.0 cm; 36.0 wks 4. Femur Length: 6.6 cm; 34.0 wks 5. Heart Rate: 143 beats per minute WEIGHT: EFW: 2640 grams (5 lbs 13 oz) -- 24 %. BIOPHYSICAL PROFILE: Motion: 2 Tone: 2 Breathin Amniotic Fluid: 2 Total score: 8/8 GESTATIONAL AGE: 1. Established GA: 36.3 wks 2. GA from [facility]: 35.2 wks ESTIMATED DATE OF DELIVERY: 1. Established MARIBELL: 12/23/2020 2. MARIBELL from [facility]: 12/31/2020 US/US OB follow up IMPRESSION: 1. A single active fetus is in vertex presentation. 2. Size equals dates 3. Reassuring BPP Thank you very much for allowing me to participate in her care.
== END 2020-11-28 10:10 | disposition home or self-care (01) ==
LOC: HO.US 10:09
PROVIDERS: Visit Provider Advanced Practice Midwife
DX: O98.513 Other viral diseases complicating pregnancy, third trimester (principal); U07.1 COVID-19; O32.1XX0 Maternal care for breech presentation, not applicable or unspecified; Z3A.36 36 weeks gestation of pregnancy
CPT/HCPCS: 76816

== ENCOUNTER 2020-11-29 15:09 | Emergency (ER) | payer MEDICAID, SELFPAY ==
[2020-11-29 15:21] VITALS: BP 115/68; PULSE 95; RESP 16; TEMP 36.9; O2SAT 99; BMI 29.2
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
--- NOTE | 2020-11-29 16:09 | PC.NURSE ---
pelvic exam performed with allison hardwick- noted to have some moderate discharge, swabs done
--- NOTE | 2020-11-29 16:16 | PC.NURSE ---
ambulance at bedside, pt to be transferred to [facility] gave report to valencia ARGUELLO
[2020-11-30 03:09] LABS: CT PCR NOT DETECTED (Not Detect.); NG PCR NOT DETECTED (Not Detect.)
[2020-11-30 11:59] LABS: BV Int Neg Control Negative (Negative); BV Int Pos Control Positive (Positive)
== END 2020-11-29 16:21 | disposition short-term general hospital (02) ==
PROVIDERS: Physician Assistant Medical; Emergency Provider Internal Medicine
DX: O23.593 Infection of other part of genital tract in pregnancy, third trimester (principal); B96.89 Other specified bacterial agents as the cause of diseases classified elsewhere; O26.893 Other specified pregnancy related conditions, third trimester; R10.2 Pelvic and perineal pain; Z3A.36 36 weeks gestation of pregnancy
CPT/HCPCS: 87480; 87491; 87510; 87591; 87660; 99285

== ENCOUNTER → 2021-01-02 14:58 | Outpatient (BNVA) | payer MEDICAID, SELFPAY | PROVIDERS: Visit Provider Advanced Practice Midwife | DX: Z39.2 Encounter for routine postpartum follow-up (principal) | CPT/HCPCS: 99212 ==

== ENCOUNTER → 2021-02-19 14:57 | Outpatient (BNVA) | payer MEDICAID, SELFPAY | PROVIDERS: Visit Provider Advanced Practice Midwife | DX: Z39.2 Encounter for routine postpartum follow-up (principal) | CPT/HCPCS: 99212 ==

== ENCOUNTER 2021-05-01 11:01 | Outpatient (REF) | payer MEDICAID, SELFPAY ==
[2021-05-01 11:16] LABS: Binax Internal Control QC Valid; Binax Now Covid-19 Ag Negative (Negative)
== END 2021-05-01 11:02 | disposition home or self-care (01) ==
LOC: HO.LAB 11:01
PROVIDERS: Visit Provider Internal Medicine
DX: Z20.822 Contact with and (suspected) exposure to COVID-19 (principal)
CPT/HCPCS: C9803

== ENCOUNTER 2022-04-23 12:47 | Outpatient (REF) | payer MEDICAID, SELFPAY ==
[2022-04-23 18:14] LABS: CT PCR NOT DETECTED (Not Detect.); NG PCR NOT DETECTED (Not Detect.)
[2022-04-24 11:24] LABS: BV Int Neg Control Negative (Negative); BV Int Pos Control Positive (Positive)
== END 2022-04-23 12:48 | disposition home or self-care (01) ==
LOC: HO.LNP 12:47
PROVIDERS: Visit Provider Advanced Practice Midwife
DX: Z01.419 Encounter for gynecological examination (general) (routine) without abnormal findings (principal); Z11.3 Encounter for screening for infections with a predominantly sexual mode of transmission; Z72.51 High risk heterosexual behavior; Z32.00 Encounter for pregnancy test, result unknown; Z79.899 Other long term (current) drug therapy
CPT/HCPCS: 0353U; 81025; 87480; 87510; 87660; 88142

== ENCOUNTER 2022-10-15 18:17 | Emergency (ER) | payer MEDICAID, SELFPAY ==
[2022-10-15 18:41] VITALS: BP 110/70; PULSE 80; RESP 18; TEMP 37.2; O2SAT 100; BMI 25.1
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
[2022-10-15 20:00] VITALS: BP 127/74; PULSE 78; RESP 16; TEMP 37; O2SAT 100
== END 2022-10-15 23:27 | disposition home or self-care (01) ==
PROVIDERS: Emergency Provider Internal Medicine; PCP General Practice
DX: L72.9 Follicular cyst of the skin and subcutaneous tissue, unspecified (principal); Z79.899 Other long term (current) drug therapy
CPT/HCPCS: 36415; 80053; 85025; 87070; 87077; 87186; 87205; 99283; 99284

== ENCOUNTER 2022-10-17 17:51 | Emergency (ER) | payer MEDICAID, SELFPAY ==
[2022-10-17 18:51] VITALS: BP 114/66; PULSE 90; RESP 16; TEMP 36.7; O2SAT 100; BMI 25.1
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
== END 2022-10-17 20:44 | disposition home or self-care (01) ==
PROVIDERS: Emergency Provider Internal Medicine; PCP General Practice
DX: Z48.00 Encounter for change or removal of nonsurgical wound dressing (principal)
CPT/HCPCS: 99282

== ENCOUNTER 2023-05-05 13:00 | Outpatient (AMB) | payer MEDICAID, SELFPAY ==
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
[2023-05-05 13:13] VITALS: BP 110/62; BMI 26.7
== END 2023-05-05 13:57 | disposition home or self-care (01) ==
LOC: HO.HWSM 13:00
PROVIDERS: PCP General Practice; Visit Provider Advanced Practice Midwife
DX: Z72.51 High risk heterosexual behavior (principal); Z30.09 Encounter for other general counseling and advice on contraception; T19.2XXA Foreign body in vulva and vagina, initial encounter; W44.8XXA Other foreign body entering into or through a natural orifice, initial encounter
CPT/HCPCS: 99213

== ENCOUNTER → 2023-05-05 13:00 | Outpatient (BNVA) | payer MEDICAID, SELFPAY | PROVIDERS: PCP General Practice; Visit Provider Advanced Practice Midwife | DX: Z30.09 Encounter for other general counseling and advice on contraception (principal); T19.2XXA Foreign body in vulva and vagina, initial encounter; Z72.51 High risk heterosexual behavior | CPT/HCPCS: 99212 ==

== ENCOUNTER 2023-12-01 20:00 | Emergency (ER) | payer MEDICAID, SELFPAY ==
--- NOTE | ~2023-12-01 | US_ITS ---
EXAMINATION: US LESS THAN 14 WEEKS WITH TRANSVAGINAL CLINICAL INFORMATION: Lower abdominal pain hCG 2259 COMPARISON: None. TECHNIQUE: Transabdominal and endovaginal grayscale pelvic ultrasonography. FINDINGS: An irregular shaped anechoic fluid collection is present in the endometrial cavity measuring approximately 2.2 cm x 0.7 cm x 2.0 cm. No gestational sac or pole identified. The ovaries are normal in appearance. The right ovary measures 2.47 x 1.17 x 1.1 cm. The left ovary measures 2.9 cm x 2.2 cm x 1.9 cm. A 1.5 cm diameter rounded normal-appearing cyst is present within the left ovary. No suspicious free intraperitoneal fluid collections are identified. Normal color flow is noted within the ovaries. No myometrial lesions are identified. The endometrium appears diffusely proliferative measuring 14 mm in aggregate width. US/US OB pelvic and transvaginal IMPRESSION: Simple fluid collection within the endometrial cavity. No intrauterine gestation identified. Normal appearance of the ovaries. No free intraperitoneal fluid noted. As clinically indicated, consider maintenance of ectopic precautions. Electronically signed by: Lino Lomas MD 12/02/2023 02:06 AM EDT RP
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
[2023-12-01 20:34] VITALS: BP 115/65; PULSE 113; RESP 20; TEMP 36.6; O2SAT 99; BMI 26.0
[2023-12-01 21:14] LABS: Hematocrit 35.1 % (37.0-47.0); Hemoglobin 11.7 g/dl (12.0-16.0); Mean Corpuscular HGB Conc 33.3 g/dl (31.0-35.0); Mean Corpuscular Hemoglobin 29.7 pg (27.0-33.0); Mean Corpuscular Volume 89.1 fL (80.0-98.0); Mean Platelet Volume 11.1 fL (9.4-12.3); Platelet Count 279 X10*3/uL (160-400); Red Blood Count 3.94 X10*6/uL (4.20-5.50); Red Cell Distribution Width 15.3 % (11.0-16.0)
[2023-12-01 21:21] LABS: WBC ABN SCTR FOR CBC 1
[2023-12-01 21:27] LABS: Alanine Aminotransferase 7 U/L (0-31); Albumin Level 4.6 g/dL (3.5-5.0); Alkaline Phosphatase 56 U/L (39-117); Anion Gap 14 (12-20); Aspartate Amino Transferase 19 U/L (5-31); Bilirubin Total 0.5 mg/dL (0.0-1.0); Blood Urea Nitrogen 15 mg/dL (9-16); Calcium 9.5 mg/dL (8.4-10.2); Carbon Dioxide 20 mmol/L (22-29); Chloride 107 mmol/L (96-108); Creatinine Clr Calc Pharmacy 104.6; Estimated Glomerular Filt Rate > 60; Glucose Random 95 mg/dL (60-115); Lipase 39 U/L (8-78); Magnesium 1.8 mg/dL (1.6-2.6); Potassium 3.6 mmol/L (3.3-5.1); Sodium 137 mmol/L (135-145); Total Protein 7.8 g/dL (6.5-8.0)
[2023-12-01 21:34] LABS: HCG Quantitative 2259 mIU/mL
[2023-12-01 22:29] LABS: Band Neutrophils Percent 0 % (3-5); Basophils Percent Manual 2 % (0-2); Lymphocytes Percent Manual 23 % (20-40); Monocytes Percent Manual 14 % (2-11); Neutrophils Percent Manual 61 % (45-73)
[2023-12-01 22:30] LABS: Ovalocytes 1+ (5-14) /OIF; Platelet Estimate NORMAL (NORMAL); Platelet Morphology Comment NORMAL; RBC Morphology NOTED
[2023-12-01 22:31] LABS: Basophils Abs Manual 0.1 X10*3/uL (0.0-0.2); Monocytes Absolute Manual 0.6 X10*3/uL (0.1-1.2); Neutrophils Absolute Manual 2.6 X10*3/uL (2.0-8.3); White Blood Count 4.3 X10*3/uL (4.8-10.8)
--- NOTE | 2023-12-02 00:01 | PC.NURSE ---
Pt LWCT, this RN calling pt as MD ordered an U/S due to an elevated HCG. Pt not answering, provider aware.
[2023-12-02 01:41] VITALS: BP 102/47; PULSE 92; RESP 16; TEMP 36.8; O2SAT 100
[2023-12-02 02:37] VITALS: BP 102/47; PULSE 92; RESP 16; TEMP 36.8; O2SAT 100
[2023-12-02 02:37] LABS: Appearance Urine Clear; Color Urine Yellow; Glucose Urine UA Negative (Negative); Leukocyte Esterase Urine Trace (Negative); Nitrite Urine Negative (Negative); Specific Gravity - Urine >= 1.030 (1.005-1.025); UMIC TRIGGER UACC YES; Urine Blood Negative (Negative); Urine Ketones 15 mg/dL (Negative); Urine Protein Trace mg/dL (Neg-Trace)
[2023-12-02 02:59] LABS: Bacteria Urine 1+ (None Seen); RBC Urine 0-2 /HPF (0-2); UACC Culture Trigger YES
== END 2023-12-02 02:38 | disposition home or self-care (01) ==
PROVIDERS: Physician Assistant Medical; Emergency Provider Internal Medicine; PCP General Practice
DX: O20.0 Threatened abortion (principal); Z3A.00 Weeks of gestation of pregnancy not specified
CPT/HCPCS: 36415; 76801; 76817; 80053; 81001; 83690; 83735; 84702; 85007; 85027; 87086; 99284

== ENCOUNTER 2023-12-05 16:40 | Emergency (ER) | payer MEDICAID, SELFPAY ==
--- NOTE | ~2023-12-05 | US_ITS ---
EXAMINATION: Ultrasound OB pelvic and transvaginal. CLINICAL INDICATION: Vaginal bleeding. Pain. Early . LMP 08/01/2024. TECHNIQUE: Transabdominal and transvaginal imaging pelvis was performed. COMPARISON: Ultrasound obstetrics 06/20/2020. FINDINGS: There is intrauterine gestational sac measuring 0.74 cm corresponding to 5 weeks 2 days. Head pericolic area adjacent to the distal sac measuring to 0.7 x 0.4 x 2.6 cm question subchorionic bleed. There is visualization of yolk sac. pole is not visualized. Left ovary measures 2.1 x 2.2 x 2.9 cm with a small corpus luteal cyst measuring 1.6 x 1.5 x 1.5 cm. Right ovary measures 2.9 x 2.0 x 1.5 cm and appears unremarkable. There is no free fluid in the pelvis. There is small nabothian cysts seen in the cervix. US/US OB pelvic and transvaginal IMPRESSION: Intrauterine gestational sac measuring 8 weeks 2 days. pole is not visualized. Yolk sac is visualized. Suspect subchorionic bleed Small nabothian cysts. Small left ovary corpus luteal cyst measuring 1.6 cm. Electronically signed by: Bashir Dang MD 12/05/2023 08:58 PM EDT
[2023-12-05 16:51] VITALS: BP 106/68; PULSE 85; RESP 16; TEMP 36.8; O2SAT 98; BMI 26.7
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
[2023-12-05 17:29] LABS: MANUAL DIFF FLAG NO
[2023-12-05 17:31] LABS: Basophils Percent Auto 0.5 % (0-2); Hematocrit 32.1 % (37.0-47.0); Hemoglobin 10.5 g/dl (12.0-16.0); Imm Gran Abs Auto 0.01 X10*3/uL (0.00-0.03); Imm Gran Pct Auto 0.3 % (0.0-0.4); Lymphocytes Absolute Auto 1.6 X10*3/uL (1.2-4.9); Lymphocytes Percent Auto 40.2 % (20-40); Mean Corpuscular HGB Conc 32.7 g/dl (31.0-35.0); Mean Corpuscular Hemoglobin 29.2 pg (27.0-33.0); Mean Corpuscular Volume 89.4 fL (80.0-98.0); Mean Platelet Volume 10.6 fL (9.4-12.3); Monocytes Absolute Auto 0.4 X10*3/uL (0.1-1.2); Monocytes Percent Auto 10.4 % (2-11); Neutrophils Absolute Auto 1.9 x10*3/uL (2.0-8.3); Neutrophils Percent Auto 47.6 % (45-73); Platelet Count 245 X10*3/uL (160-400); Red Blood Count 3.59 X10*6/uL (4.20-5.50); Red Cell Distribution Width 15.3 % (11.0-16.0)
[2023-12-05 17:33] LABS: Appearance Urine Cloudy; Color Urine Yellow; Glucose Urine UA Negative (Negative); Leukocyte Esterase Urine Trace (Negative); Nitrite Urine Negative (Negative); Specific Gravity - Urine >= 1.030 (1.005-1.025); UMIC TRIGGER UACC YES; Urine Blood Negative (Negative); Urine Ketones Trace mg/dL (Negative); Urine Protein Trace mg/dL (Neg-Trace)
[2023-12-05 17:35] LABS: Bacteria Urine 2+ (None Seen); Hyaline Casts Urine 0-2 /LPF (0-2); RBC Urine 0-2 /HPF (0-2); WBC Urine 0-5 /HPF (0-5)
[2023-12-05 18:07] LABS: Alanine Aminotransferase 6 U/L (0-31); Albumin Level 4.2 g/dL (3.5-5.0); Alkaline Phosphatase 51 U/L (39-117); Anion Gap 9 (12-20); Aspartate Amino Transferase 17 U/L (5-31); Bilirubin Total 0.4 mg/dL (0.0-1.0); Blood Urea Nitrogen 12 mg/dL (9-16); Calcium 9.5 mg/dL (8.4-10.2); Carbon Dioxide 25 mmol/L (22-29); Chloride 108 mmol/L (96-108); Creatinine Clr Calc Pharmacy 107.4; Estimated Glomerular Filt Rate > 60; Glucose Random 89 mg/dL (60-115); Magnesium 1.9 mg/dL (1.6-2.6); Potassium 3.6 mmol/L (3.3-5.1); Sodium 138 mmol/L (135-145); Total Protein 6.8 g/dL (6.5-8.0)
[2023-12-05 18:08] LABS: HCG Quantitative 8580 mIU/mL
[2023-12-05 22:52] VITALS: BP 97/53; PULSE 85; RESP 16; TEMP 37.3; O2SAT 97
[2023-12-06 00:17] VITALS: BP 97/53; PULSE 85; RESP 16; TEMP 37.3; O2SAT 97
== END 2023-12-06 00:19 | disposition home or self-care (01) ==
PROVIDERS: Physician Assistant Medical; Emergency Provider Emergency Medicine
DX: O26.91 Pregnancy related conditions, unspecified, first trimester (principal); Z3A.01 Less than 8 weeks gestation of pregnancy
CPT/HCPCS: 36415; 76801; 76817; 80053; 81001; 83735; 84702; 85025; 99283; 99284

== ENCOUNTER 2024-02-18 02:39 | Emergency (ER) | payer MEDICAID, SELFPAY ==
--- NOTE | 2024-02-18 | ECG_ITS ---
Test Reason : SYNCOPE Blood Pressure : / mmHG Vent. Rate : 079 BPM Atrial Rate : 079 BPM P-R Int : 136 ms QRS Dur : 078 ms QT Int : 364 ms P-R-T Axes : 021 042 006 degrees QTc Int : 417 ms Normal sinus rhythm with sinus arrhythmia Normal ECG No previous ECGs available Referred By: Malvin Haas Electronically Signed By:NIKKI MARTIN MD
[2024-02-18 02:50] VITALS: BP 121/79; PULSE 91; RESP 20; TEMP 37; O2SAT 100; BMI 25.4
[2024-02-18 02:54] VITALS: BP 135/74; PULSE 80; O2SAT 100
[2024-02-18 03:07] LABS: MANUAL DIFF FLAG NO
[2024-02-18 03:12] LABS: Basophils Absolute Auto 0.1 X10*3/uL (0.0-0.2); Basophils Percent Auto 1.2 % (0-2); Eosinophils Absolute Auto 0.1 X10*3/uL (0.0-0.4); Eosinophils Percent Auto 1.2 % (0-4); Hemoglobin 10.9 g/dl (12.0-16.0); Imm Gran Abs Auto 0.01 X10*3/uL (0.00-0.03); Imm Gran Pct Auto 0.2 % (0.0-0.4); Lymphocytes Absolute Auto 2.5 X10*3/uL (1.2-4.9); Lymphocytes Percent Auto 43.6 % (20-40); Mean Corpuscular HGB Conc 32.1 g/dl (31.0-35.0); Mean Corpuscular Hemoglobin 27.9 pg (27.0-33.0); Mean Corpuscular Volume 87.2 fL (80.0-98.0); Mean Platelet Volume 10.4 fL (9.4-12.3); Monocytes Absolute Auto 0.5 X10*3/uL (0.1-1.2); Monocytes Percent Auto 8.9 % (2-11); Neutrophils Absolute Auto 2.6 x10*3/uL (2.0-8.3); Neutrophils Percent Auto 44.9 % (45-73); Platelet Count 318 X10*3/uL (160-400); Red Cell Distribution Width 14.4 % (11.0-16.0); White Blood Count 5.8 X10*3/uL (4.8-10.8)
[2024-02-18 03:24] LABS: Alanine Aminotransferase 8 U/L (0-31); Albumin Level 4.5 g/dL (3.5-5.0); Alkaline Phosphatase 57 U/L (39-117); Anion Gap 17 (12-20); Aspartate Amino Transferase 22 U/L (5-31); Bilirubin Total 0.4 mg/dL (0.0-1.0); Blood Urea Nitrogen 15 mg/dL (9-16); Calcium 9.4 mg/dL (8.4-10.2); Carbon Dioxide 20 mmol/L (22-29); Chloride 110 mmol/L (96-108); Creatinine Clr Calc Pharmacy 93.4; Estimated Glomerular Filt Rate > 60; Glucose Random 88 mg/dL (60-115); Lipase 55 U/L (8-78); Potassium 3.6 mmol/L (3.3-5.1); Sodium 143 mmol/L (135-145); Total Protein 7.5 g/dL (6.5-8.0)
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
[2024-02-18 04:21] VITALS: BP 105/53; PULSE 75; RESP 18; O2SAT 98
[2024-02-18 04:34] LABS: Appearance Urine Clear; Color Urine Dark Yellow; Glucose Urine UA Negative (Negative); Leukocyte Esterase Urine Negative (Negative); Nitrite Urine Negative (Negative); Specific Gravity - Urine >= 1.030 (1.005-1.025); UMIC TRIGGER UACC YES; Urine Blood Large (3+) (Negative); Urine Ketones Trace mg/dL (Negative); Urine Protein Trace mg/dL (Neg-Trace)
[2024-02-18 04:36] LABS: UPreg QC Valid YES; Urine Pregnancy NEGATIVE (NEGATIVE)
[2024-02-18 04:49] LABS: Bacteria Urine None Seen (None Seen); RBC Urine 0-2 /HPF (0-2); UACC Culture Trigger YES
[2024-02-18 05:36] VITALS: BP 113/51; PULSE 76; RESP 18; TEMP 37; O2SAT 98
[2024-02-18 05:55] VITALS: BP 113/51; PULSE 76; RESP 18; TEMP 37; O2SAT 98
== END 2024-02-18 05:57 | disposition home or self-care (01) ==
PROVIDERS: Emergency Provider Emergency Medicine
DX: R55 Syncope and collapse (principal); R10.13 Epigastric pain
CPT/HCPCS: 36415; 80053; 81001; 81025; 83690; 85025; 87086; 93005; 99283; 99285

== ENCOUNTER → 2024-02-18 02:58 | Outpatient (BNV) | payer MEDICAID, SELFPAY | PROVIDERS: Emergency Provider Emergency Medicine; Visit Provider Internal Medicine Cardiovascular Disease | DX: R55 Syncope and collapse (principal) | CPT/HCPCS: 93010 ==

== ENCOUNTER 2024-04-17 23:01 | Emergency (ER) | payer MEDICAID, SELFPAY ==
--- NOTE | ~2024-04-17 | XR_ITS ---
CLINICAL HISTORY: blunt injury 1 view abdomen Comparison: None Findings: No pneumoperitoneum or pneumatosis. No abnormal calcifications. No acute fractures. IMPRESSION: The bowel gas pattern is within normal limits This document has been electronically signed by: Krishan Hernández MD, PHD on 04/18/2024 02:56:58
[2024-04-17 23:21] VITALS: BP 120/74; PULSE 86; RESP 18; TEMP 36.8; O2SAT 100; BMI 25.7
[2024-04-17 23:38] LABS: MANUAL DIFF FLAG NO
[2024-04-17 23:39] LABS: Basophils Percent Auto 0.8 % (0-2); Eosinophils Percent Auto 0.4 % (0-4); Hematocrit 34.3 % (37.0-47.0); Hemoglobin 11.1 g/dl (12.0-16.0); Lymphocytes Absolute Auto 1.2 X10*3/uL (1.2-4.9); Lymphocytes Percent Auto 45.6 % (20-40); Mean Corpuscular HGB Conc 32.4 g/dl (31.0-35.0); Mean Corpuscular Volume 86.4 fL (80.0-98.0); Monocytes Absolute Auto 0.4 X10*3/uL (0.1-1.2); Monocytes Percent Auto 14.9 % (2-11); Neutrophils Percent Auto 38.3 % (45-73); Platelet Count 235 X10*3/uL (160-400); Red Blood Count 3.97 X10*6/uL (4.20-5.50); Red Cell Distribution Width 15.2 % (11.0-16.0); White Blood Count 2.6 X10*3/uL (4.8-10.8)
[2024-04-17 23:52] LABS: Alanine Aminotransferase 11 U/L (0-31); Albumin Level 4.2 g/dL (3.5-5.0); Alkaline Phosphatase 59 U/L (39-117); Anion Gap 11 (12-20); Aspartate Amino Transferase 22 U/L (5-31); Bilirubin Total 0.3 mg/dL (0.0-1.0); Blood Urea Nitrogen 15 mg/dL (9-16); Calcium 8.9 mg/dL (8.4-10.2); Carbon Dioxide 21 mmol/L (22-29); Chloride 109 mmol/L (96-108); Creatinine Clr Calc Pharmacy 98.8; Estimated Glomerular Filt Rate > 60; Glucose Random 87 mg/dL (60-115); Lipase 33 U/L (8-78); Potassium 3.6 mmol/L (3.3-5.1); Sodium 137 mmol/L (135-145); Total Protein 7.3 g/dL (6.5-8.0)
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
[2024-04-18] MEDS: Ibuprofen 600 MG TABLET PO (02:24)
[2024-04-18 03:29] VITALS: BP 120/74; PULSE 86; RESP 18; TEMP 36.8; O2SAT 100
== END 2024-04-18 03:30 | disposition home or self-care (01) ==
PROVIDERS: Emergency Provider Internal Medicine; PCP General Practice
DX: S30.1XXA Contusion of abdominal wall, initial encounter (principal); R10.9 Unspecified abdominal pain; X58.XXXA Exposure to other specified factors, initial encounter; Y93.9 Activity, unspecified; Y92.9 Unspecified place or not applicable; Y99.9 Unspecified external cause status
CPT/HCPCS: 36415; 74018; 80053; 83690; 85025; 99283

== ENCOUNTER → 2024-04-18 01:57 | Outpatient (BNV) | payer MEDICAID, SELFPAY | PROVIDERS: Emergency Provider Internal Medicine; PCP General Practice; Visit Provider General Practice | DX: R10.33 Periumbilical pain (principal); S39.91XA Unspecified injury of abdomen, initial encounter | CPT/HCPCS: 74018 ==

== ENCOUNTER 2024-09-08 16:40 | Emergency (ER) | payer OTHER, SELFPAY ==
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
[2024-09-08 16:57] VITALS: BP 108/60; BP 116/56; PULSE 71; PULSE 82; RESP 12; O2SAT 100; O2SAT 99; BMI 25.2
--- NOTE | 2024-09-08 17:06 | ECG_ITS ---
Test Reason : SYNCOPE Blood Pressure : */* mmHG Vent. Rate : 63 BPM Atrial Rate : 63 BPM P-R Int : 124 ms QRS Dur : 82 ms QT Int : 396 ms P-R-T Axes : 12 45 33 degrees QTcB Int : 405 ms Normal sinus rhythm Normal ECG When compared with ECG of 18-Feb-2024 02:58, No significant change was found Referred By: Malvin Elizondo Electronically Signed By: NIKKI MARTIN MD
[2024-09-08 17:21] VITALS: BP 116/56; PULSE 75; RESP 13; TEMP 37.2; O2SAT 100
[2024-09-08] MEDS: Acetaminophen 1,000 MG/100 ML PIGGYBACK 400 MG IV (17:39)
[2024-09-08 18:50] LABS: UPreg QC Valid YES; Urine Pregnancy NEGATIVE (NEGATIVE)
[2024-09-08 19:22] VITALS: BP 116/56; PULSE 75; RESP 13; TEMP 37.2; O2SAT 100
== END 2024-09-08 19:22 | disposition home or self-care (01) ==
PROVIDERS: Emergency Provider Emergency Medicine; PCP General Practice
DX: R55 Syncope and collapse (principal)
CPT/HCPCS: 81025; 93005; 96365; 99284; 99285; J0131

== ENCOUNTER → 2024-09-08 17:06 | Outpatient (BNV) | payer SELFPAY | PROVIDERS: Emergency Provider Emergency Medicine; PCP General Practice; Visit Provider Internal Medicine Cardiovascular Disease | DX: R55 Syncope and collapse (principal) | CPT/HCPCS: 93010 ==

== ENCOUNTER 2024-10-03 13:03 | Outpatient (REF) | payer OTHER, SELFPAY ==
[2024-10-04 14:49] LABS: Bacterial Vaginosis PCR POSITIVE (Negative); Candida Group PCR DETECTED (Not Detect); Candida glab krusei PCR NOT DETECTED (Not Detect); Trichomonas vaginalis PCR NOT DETECTED (Not Detect)
[2024-10-04 15:25] LABS: CT PCR NOT DETECTED (Not Detect.); NG PCR NOT DETECTED (Not Detect.)
--- OUTSIDE RECORDS SUMMARY | 2024-10-04 15:30 | XMS_ITS | Clinical Summary ---
Author Organization [facility] ity Address [address] [place] [address] Care Team Providers Care Field Coordinator Name Role Phone Unavailable Primary Care Provider Unavailabl e Surgical History Surgery Date Site/Laterality Comments OTHER SURGICAL HISTORY PROCEDURE: DENIES PREVIOUS SURGERY Family History Medical History Relation Name Comments Breast cancer Maternal Grandmother Hypertension Mother Colon cancer Paternal Grandfather Relation Name Status Comments Maternal Grandmother Mother Paternal Grandfather Social History Tobacco Use Types Packs/Day Years Used Date Smoking Tobacco: Never Smokeless Tobacco: Never Alcohol Use Standard Drinks/Week Comments No 0 (1 standard drink = 0.6 oz pur e alcohol) Comments Unknown Sex and Gender Information Value Date Recorded Sex Assigned at Not on file Legal Sex Female 5:45 AM EST Gender Identity Not on file Sexual Orientation Not on file Obstetrics History Plan of Treatment Health Maintenance Due Date Last Done Comments HPV Vaccines (1 - 3-dose series) 09/19/2014 DTaP,Tdap,and Td Vaccines (1 - Tdap) 09/19/2018 Hepatitis B Vaccines (1 of 3 - 19+ 3-dose series) 09/19/2018 Cervical Cancer Screening: P ap Smear 09/19/2020 COVID-19 Vaccine ( - 2023-2 5 season) 2023 Influenza Vaccine (Season Ended) 2024 HIB Vaccines Aged Out No longer eligi ble based on patient's age to complete this topic Hepatitis A Vaccines Aged Out No long er eligible based on patient's age to complete this topic IPV Vaccines Aged Out No longer eligi ble based on patient's age to complete this topic MMR Vaccines Aged Out No longer eligi ble based on patient's age to complete this topic Meningococcal ACWY Vaccine Aged Out N o longer eligible based on patient's age to complete this topic Meningococcal B Vaccine Aged Out No l onger eligible based on patient's age to complete this topic Pneumococcal Vaccine: Pediat rics (0 to 5 Years) and At-Risk Patients (6 to 64 Years) Aged Out No longer eligible b ased on patient's age to complete this topic RSV Immunization Patients Un demond 20 months Aged Out No longer eligible b ased on patient's age to complete this topic Varicella Vaccines Aged Out No longer eligible based on patient's age to complete this topic
== END 2024-10-03 13:04 | disposition home or self-care (01) ==
LOC: HO.HHCLNP 13:03
PROVIDERS: Visit Provider Nurse Practitioner
DX: N94.9 Unspecified condition associated with female genital organs and menstrual cycle (principal)
CPT/HCPCS: 81515; 87491; 87591

== ENCOUNTER 2024-11-21 08:15 | Outpatient (REF) | payer MEDICAID, SELFPAY ==
[2024-11-20 12:24] LABS: Bacterial Vaginosis PCR POSITIVE (Negative); Candida Group PCR NOT DETECTED (Not Detect); Candida glab krusei PCR NOT DETECTED (Not Detect); Trichomonas vaginalis PCR NOT DETECTED (Not Detect)
[2024-11-20 12:56] LABS: CT PCR NOT DETECTED (Not Detect.); NG PCR NOT DETECTED (Not Detect.)
--- OUTSIDE RECORDS SUMMARY | 2024-11-26 08:15 | XMS_ITS | Clinical Summary ---
Author Organization [facility] Address [address] [place] [address] Care Team Providers Care Short Piece Handler Name Role Phone Unavailable Primary Care Provider Unavailabl e Allergies No known active allergies Medications ibuprofen (MOTRIN) 600 MG tablet Take 1 tablet (600 mg total) by mouth 3 (three) times a day as needed for mild pain (pain). 20 tablet 10/12/2022 Active sulfamethoxazol e-trimethoprim (BACTRIM DS,SEPTRA DS) 800-160 MG per tablet Take 1 tablet by mouth 2 (two) times a day. 14 tablet 10/12/2022 Active cephalexin (KEFLEX) 500 MG capsule Take 1 capsule (500 mg total) by mouth 4 (four) times a day. 28 capsule 10/12/2022 Active Social History Tobacco Use Types Packs/Day Years Used Date Smoking Tobacco: Never Assessed Comments No Sex and Gender Information Value Date Recorded Sex Assigned at Female 10/12/2022 2:04 AM EDT Legal Sex Female 1:45 AM EDT Gender Identity Female 10/12/2022 2:04 AM EDT Sexual Orientation Heterosexual (straight) 10/12 2:04 AM EDT Last Filed Vital Signs Vital Sign Reading Time Taken Comments Blood Pressure 116/64 10/12/2022 5:15 AM EDT Pulse 97 10/12/2022 5:15 AM EDT Temperature 37.1 C (98.8 F) 10/12/2022 5:15 AM EDT Respiratory Rate 16 10/12/2022 5:15 AM EDT Oxygen Saturation 100% 10/12/2022 5:15 AM EDT Inhaled Oxygen Concentration - - Weight - - Height - - Body Mass Index - - Plan of Treatment Health Maintenance Due Date Last Done Comments Hepatitis C Virus Screening 1999 HIV Screening 09/19/2012 HPV Vaccines (1 - 3-dose series) 09/19/2014 DTaP/Tdap/Td Vaccines (1 - Tdap) 09/19/2018 Hepatitis B Vaccines (1 of 3 - 19+ 3-dose series) 09/19/2018 Pap Smear (Ages 21-65) 09/19/2020 COVID-19 Vaccine (1 - 2023-2 5 season) 2023 Influenza Vaccine 11/09/2024 12/25/2012 Pneumococcal Vaccine: Pediat caity (0-5 Years) and At-Risk Patients (6 to 49 Years) Aged Out No longer eligible b ased on patient's age to complete this topic Insurance [facility]
--- OUTSIDE RECORDS SUMMARY | 2024-11-26 08:15 | XMS_ITS | Clinical Summary ---
Author Organization [facility] Address [address] [place] [address] Care Team Providers Care Heater Planer Operator Name Role Phone Unavailable Primary Care Provider [...] Screening: P ap Smear 09/19/2020 COVID-19 Vaccine (1 - 2023-2 5 season) 2023 Depression Screening 04/11/2024 Influenza Vaccine (#1) 2024 HIB Vaccines Aged Out No longer [...] 5 Years) and At-Risk Patients (6 to 49 [...]
--- OUTSIDE RECORDS SUMMARY | 2024-11-26 08:15 | XMS_ITS ---
[facility] Name [facility] Organization Unknown Encounters Encounter Type Encounter Reason Primary Diagnosis Location Date Emergency Cutaneous absces s of buttock [facility] 10/12/2022 Care Team Organization Name Specialty Phone Email Start Date End Da te [facility] 10/12/2022 10/12/2022 [facility]arm 10/12/2022
== END 2024-11-21 08:16 | disposition home or self-care (01) ==
LOC: HO.LNP 08:15
PROVIDERS: Visit Provider General Practice
DX: Z12.4 Encounter for screening for malignant neoplasm of cervix (principal)
CPT/HCPCS: 81515; 87491; 87591; 88175

== ENCOUNTER → 2024-11-26 10:58 | Outpatient (REF) | payer MEDICAID, SELFPAY ==
--- NOTE | 2024-11-26 11:01 | HM_ITS ---
* Total monitoring time about 6 days. * Underlying rhythm is sinus with an average rate of 90/Min. * Rare ventricular ectopy. * No significant pauses or high-grade AV blocks. * No patient markers or diary events. MTDD
== END ==
LOC: HO.CARD 10:58
PROVIDERS: PCP General Practice; Visit Provider General Practice
DX: R55 Syncope and collapse (principal)
CPT/HCPCS: 93225

== ENCOUNTER → 2024-11-26 11:01 | Outpatient (BNV) | payer MEDICAID, SELFPAY | PROVIDERS: PCP General Practice; Visit Provider Internal Medicine | DX: I49.3 Ventricular premature depolarization (principal) | CPT/HCPCS: 93227 ==

== ENCOUNTER 2024-12-09 00:41 | Emergency (ER) | payer MEDICAID, SELFPAY ==
[2024-12-09 00:49] VITALS: BP 141/81; PULSE 93; RESP 16; TEMP 37.1; O2SAT 100; BMI 26.9
--- NOTE | 2024-12-09 01:09 | PC.NURSE ---
pt here for urogenital pain, reports 3/10 pain, unsure of as she took multiple test and had different results with some. pt reports pink discharge, LMP some time in October. respirations even and unlabored.
--- OUTSIDE RECORDS SUMMARY | 2024-12-09 01:11 | XMS_ITS | Clinical Summary ---
Author Organization [facility] Address [address] [place] [address] Care Team Providers Care Hotel Attendant Name Role Phone Unavailable Primary Care Provider [...] patient's age to complete this topic Insurance [facility]
--- OUTSIDE RECORDS SUMMARY | 2024-12-09 01:11 | XMS_ITS | Clinical Summary ---
Author Organization [facility] [employer] [facility] ity Address [address] [place] [address] Care Team Providers Care Ground Operations Crew Member Name Role Phone Unavailable Primary Care Provider [...]
--- OUTSIDE RECORDS SUMMARY | 2024-12-09 01:11 | XMS_ITS | Encounter Summary ---
Author Organization [employer] Address [address] [place] [address] Care Team Providers Care As400 Developer Name Role Phone Yoana Flores MD Primary Care Provider [phone] Camryn Maxwell Unavailable [phone] Daren Hodges Unavailable Encounter Details Date Type Department Care Team (Late st Contact Info) Description 05/20/2024 Orders Only [facility] [address], [place] [id number] ProviderKarlene MD Social History Tobacco Use Types Packs/Day Years Used Date Smoking Tobacco: Never Passive Smoke Exposure: Never Smokeless Tobacco: Never Alcohol Use Standard Drinks/Week Comments Never 0 (1 standard drink = 0.6 oz pur e alcohol) Depression Answer Date Recorded Patient Health Questionnaire-9 Score 0 12/26/2023 Patient Health Questionnaire-9 Score 0 12/26/2023 Last PHQ-9: Questionnaire Data Not on file 0 12/26/2023 Housing Stability Answer Date Recorded What is your housing situation today? I have omar naranjo 01/28/[address] you li ve. Do you have problems with any of the following? None of the above 01/28/2023 Food Insecurity Answer Date Recorded Within the past 12 months, y ou worried that your food would run out before you got money to buy more: Never True 01/28/2023 Within the past 12 months,th e food you bought just didn't last and you didn't have enough money to get more: Never True Transportation Answer Date Recorded In the past 12 months, has l ack of transportation kept you from medical appts, meetings, work or from getting things needed for daily living? No 07/21/2023 Utilities Answer Date Recorded In the past 12 months, has t he electric, gas, oil or water company threatened to shut off services in your home? No 01/28/2023 Depression Answer Date Recorded Patient Health Questionnaire-2 Score 0 12/26/2023 Comments Unknown Sex and Gender Information Value Date Recorded Sex Assigned at Female 02/08/2022 10:16 AM EDT Legal Sex Female 10:16 AM EDT Gender Identity Female 02/08/2022 10:16 AM EDT Sexual Orientation Choose not to disclose 2021 10:16 AM EDT documented as of this encounter Plan of Treatment Not on file documented as of this encounter Procedures Procedure Name Priority Date/Time Associated Diagnosis Comments HM PAP/HPV Routine 04/23/2022 7:43 PM EST documented in this encounter Results * HM PAP/HPV (04/23/2022 7:43 PM EST) us Historical Provider HEALTH MAINTENANCE Final Result documented in this encounter Visit Diagnoses Not on filedocumented in this encounter Additional Health Concerns Assessment Noted Time PHQ-9 Depression Total Score: 0 12/26/19 24 3:45 PM EDT documented as of this encounter Care Teams As400 Developer Relationship Specialty Start Date End Date Yoana Flores MD [address] [place] [id number] PCP - General Family Medicine 11/16/21 Camryn Maxwell Registered Nurse 09/10/24 09/11/24 Daren Hodges 09/10/24 09/11/24 documented as of this encounter
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
--- OUTSIDE RECORDS SUMMARY | 2024-12-09 01:12 | XMS_ITS | Encounter Summary ---
Author Organization [employer] Address [address] [place] [address] Care Team Providers Care Director Of User Experience Name Role Phone Yoana Flores MD Primary Care Provider [phone] Encounter Details Date Type Department Care Team (Late st Contact Info) Description 10/18/2024 Results Follow-Up [facility] [address] [place] [address] Kelin Patel NP [address] [place] [address] Chlamydia/N. Gonorrhoeae RNA, TMA, Vagina, POCT , urine manually resulted Social History Tobacco Use Types Packs/Day Years [...] Q2 Not on file 09/11/2024 Comments Unknown Sex and Gender Information Value Date Recorded Sex Assigned at Female 02/08/2022 10:16 AM EDT Legal Sex Female 10:16 AM EDT Gender Identity Female 02/08/2022 10:16 AM EDT Sexual Orientation Choose not to disclose 2021 10:16 AM EDT documented as of this encounter Plan of Treatment Not on file documented as of this encounter Visit Diagnoses Not on filedocumented in this encounter Additional Health Concerns Assessment Noted Time PHQ-9 Depression Total Score: 8 10/18/19 25 10:54 AM EDT documented as of this encounter Care Teams Director Of User Experience Relationship Specialty Start Date End Date Yoana Flores MD [address] [place] [address] PCP - General Family Medicine 11/16/21 documented as of this encounter
[2024-12-09 01:15] LABS: Hematocrit 33.0 % (37.0-47.0); Hemoglobin 11.0 g/dl (12.0-16.0); Imm Gran Abs Auto 0.02 X10*3/uL (0.00-0.03); Imm Gran Pct Auto 0.3 % (0.0-0.4); Lymphocytes Absolute Auto 2.1 X10*3/uL (1.2-4.9); MANUAL DIFF FLAG NO; Mean Corpuscular HGB Conc 33.3 g/dl (31.0-35.0); Mean Corpuscular Hemoglobin 29.0 pg (27.0-33.0); Mean Corpuscular Volume 87.1 fL (80.0-98.0); NRBC Abs Auto 0.000 X10*3/uL (0.0-0.012); NRBC Pct Auto 0.0 /100WBC (0.0-0.2); Platelet Count 272 X10*3/uL (160-400); Red Blood Count 3.79 X10*6/uL (4.20-5.50); White Blood Count 7.3 X10*3/uL (4.8-10.8)
[2024-12-09 01:23] VITALS: BP 141/81; PULSE 93; RESP 16; TEMP 37.1; O2SAT 100
[2024-12-09 01:34] LABS: Appearance Urine Cloudy; Glucose Urine UA Negative (Negative); PH 6.5 (5.0-9.0); Specific Gravity - Urine 1.025 (1.005-1.025); UMIC TRIGGER UACC YES
[2024-12-09 01:36] LABS: UACC Culture Trigger YES
[2024-12-09 01:38] LABS: Alanine Aminotransferase 12 U/L (0-31); Albumin Level 4.7 g/dL (3.5-5.0); Alkaline Phosphatase 62 U/L (39-117); Anion Gap 17 (12-20); Aspartate Amino Transferase 18 U/L (5-31); Blood Urea Nitrogen 16 mg/dL (9-16); Calcium 9.3 mg/dL (8.4-10.2); Carbon Dioxide 23 mmol/L (22-29); Chloride 108 mmol/L (96-108); Creatinine Clr Calc Pharmacy 88.6; Estimated Glomerular Filt Rate > 60; Potassium 3.5 mmol/L (3.3-5.1); Sodium 144 mmol/L (135-145); Total Protein 7.4 g/dL (6.5-8.0)
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
[2024-12-09 04:04] VITALS: BP 103/56; PULSE 94; RESP 16; TEMP 36.5; O2SAT 99
== END 2024-12-09 04:24 | disposition home or self-care (01) ==
PROVIDERS: Emergency Provider Emergency Medicine; PCP General Practice
DX: N39.0 Urinary tract infection, site not specified (principal)
CPT/HCPCS: 36415; 80053; 81001; 84702; 85025; 87086; 87088; 87186; 99283; 99284

== ENCOUNTER 2024-12-27 16:08 | Outpatient (REF) | payer OTHER, SELFPAY ==
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
--- OUTSIDE RECORDS SUMMARY | 2024-12-27 17:13 | XMS_ITS | Clinical Summary ---
Author Organization [facility] Address [address] [place] [address] Care Team Providers Care Brand Mgr Name Role Phone Unavailable Primary Care Provider [...] Cervical Cancer Screening: P ap Smear 09/19/2020 Depression Screening 04/11/2024 COVID-19 Vaccine (1 - 2023-2 5 season) 2024 Influenza Vaccine (#1) 2024 RSV Immunization Adult Patie nts (1 - 1-dose 75+ series) 09/19/2074 HIB Vaccines Aged Out No longer eligi [...]
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
--- OUTSIDE RECORDS SUMMARY | 2024-12-27 17:14 | XMS_ITS | Clinical Summary ---
Author Organization [facility] Address [address] [place] [address] Care Team Providers Care Stone Rigger Name Role Phone Unavailable Primary Care Provider [...] series) 09/19/2018 Pap Smear (Ages 21-65) 09/19/2020 Influenza Vaccine 11/09/2024 12/25/2012 COVID-19 Vaccine (1 - 2023-2 5 season) 2024 Pneumococcal Vaccine: Pediat caity (0-5 Years) and At-Risk Patients (6 to 49 Years) Aged Out No longer eligible b ased on patient's age to complete this topic Insurance [facility]
--- OUTSIDE RECORDS SUMMARY | 2024-12-27 17:14 | XMS_ITS | Encounter Summary ---
Author Organization [employer] Address [address] [place] [address] Care Team Providers Care Credit Rating Inspector Name Role Phone Yoana Flores MD Primary Care Provider [phone] Encounter Details Date Type Department Care Team (Latest Contact Info) Description 12/27/2024 Travel Social History Tobacco Use Types Packs/Day Years [...] documented as of this encounter Care Teams Credit Rating Inspector Relationship Specialty Start Date End Date Yoana Flores MD [address] [place] [address] PCP - General Family Medicine 11/16/21 documented as of this encounter
--- OUTSIDE RECORDS SUMMARY | 2024-12-27 17:14 | XMS_ITS | Encounter Summary ---
Author Organization [employer] Address [address] [facility] [address] [place] [address] Care Team Providers Care Rn Cardiovascular Name Role Phone Yoana Flores MD Primary Care Provider [phone] Encounter Details Date Type Department Care Team (Latest Contact Info) Description 12/26/2024 Travel Social History Tobacco Use Types Packs/Day [...] documented as of this encounter Care Teams Rn Cardiovascular Relationship Specialty Start Date End Date Yoana Flores MD [address] [place] [address] PCP - General Family Medicine 11/16/21 documented as of this encounter
--- OUTSIDE RECORDS SUMMARY | 2024-12-27 17:14 | XMS_ITS | Encounter Summary ---
Author Organization [employer] Address [address] [facility] 7t [place] [address] Care Team Providers Care Ag Equipment Field Service Technician Name Role Phone Yoana Flores MD Primary Care Provider Reason for Visit * Reason Onset Date Comments Nurse Triage 12/26/2024 Encounter Details Date Type Department Care Team ([facility] st Contact Info) Description 12/26/2024 Telephone [facility] [address] [place], [place] [phone] Yoana Flores MD [address] [place] [address] Nurse Triage Social History Tobacco Use Types Packs/Day Years [...] AM EDT documented as of this encounter Miscellaneous Notes * Telephone Encounter - Kira Candelario RN - 12/26/2024 9:38 AM EDT Call returned to [facility] to triage below at [phone]. Reports having pain with passing urine x 2 days. Pt reports small amount of blood on tissue. Thick cottage like discharge. Pt martinez any pelvic or flank pain. Denies any n/v or fever. Pt states they did change her plan under [employer] but does not know name or have member ID. Pt will come into Insurance enrollment prior to visit to obtain information for FD to update. ' Protocol Used: Urination Pain - Female (Adult) Protocol-Based Disposition: See in Office or Video Visit Today Future Appointments Date Time Provider Department Center 12/26/2024 10:15 AM Donna Mathew CNM MEDICINE [facility] Positive Triage Question: * Unusual vaginal discharge * All higher-acuity triage questions were negative Care Advice Discussed: * Reassurance and Education - Possible Urine Infection * Drink Extra Fluids * Reasons To Call Back - Fever or back pain occurs - You become worse * Telephone Encounter - Vaishali Childers - 12/26/2024 9:30 AM EDT Symptom: Urine Symptoms Outcome: Schedule an urgent appointment (within 4 hours) or talk to a nurse or provider soon Reason: Pain when passing urine (peeing) The caller accepted this outcome. Contact pt at [phone] documented in this encounter Plan of Treatment Not on file documented as of this encounter Visit Diagnoses Not on filedocumented in this encounter Additional Health Concerns Assessment Noted Time PHQ-9 Depression Total Score: 8 10/18/19 25 10:54 AM EDT documented as of this encounter Care Teams Ag Equipment Field Service Technician Relationship Specialty Start Date End Date Yoana Flores MD [address] [place] [address] PCP - General Family Medicine 11/16/21 documented as of this encounter
--- OUTSIDE RECORDS SUMMARY | 2024-12-27 17:14 | XMS_ITS | Encounter Summary ---
Author Organization [employer] Address [address] [facility] [address] [place] [address] Care Team Providers Care Middle School Band Teacher Name Role Phone Yoana Flores MD Primary Care Provider [phone] Camryn Maxwell Unavailable [phone] Daren Hodges Unavailable Encounter Details Date Type Department Care Team (Late st Contact Info) Description 05/20/2024 Orders Only [facility] [address] [place] [address] Provider, MD Karlene Social History Tobacco Use Types Packs/Day Years [...] documented as of this encounter Care Teams Middle School Band Teacher Relationship Specialty Start Date End Date Yoana Flores MD [address] [place] [address] PCP - General Family Medicine 11/16/21 Camryn Maxwell Registered Nurse 09/10/24 09/11/24 Daren Hodges 09/10/24 09/11/24 documented as of this encounter
[2024-12-27 18:21] LABS: CT PCR NOT DETECTED (Not Detect.); NG PCR NOT DETECTED (Not Detect.)
[2024-12-27 21:59] LABS: Bacterial Vaginosis PCR NEGATIVE (Negative); Candida Group PCR DETECTED (Not Detect); Candida glab krusei PCR NOT DETECTED (Not Detect); Trichomonas vaginalis PCR NOT DETECTED (Not Detect)
== END 2024-12-27 16:09 | disposition home or self-care (01) ==
LOC: HO.HHCLNP 16:08
PROVIDERS: Visit Provider Family Medicine
DX: Z11.3 Encounter for screening for infections with a predominantly sexual mode of transmission (principal); Z11.8 Encounter for screening for other infectious and parasitic diseases; N89.8 Other specified noninflammatory disorders of vagina
CPT/HCPCS: 81515; 87086; 87491; 87591

== ENCOUNTER 2025-01-19 15:09 | Outpatient (REF) | payer OTHER, SELFPAY ==
--- OUTSIDE RECORDS SUMMARY | 2025-01-19 12:00 | XMS_ITS | Encounter Summary ---
Author Organization [employer] Address [address] [facility] [address] [place] [address] Care Team Providers Care Telephone Sales Agent Name Role Phone Yoana Flores MD Primary Care Provider [phone] Encounter Details Date Type Department Care Team (Late st Contact Info) Description 01/19/2025 12:00 PM EDT Office Visit [facility] [address] [place] [address] UTI symptoms Social History Tobacco Use Types Packs/Day Years [...] Access Q2 Not on file 09/11/2024 Comments No Sex and Gender Information Value Date Recorded Sex Assigned at Female 02/08/2022 10:16 AM EDT Legal Sex Female 10:16 AM EDT Gender Identity Female 02/08/2022 10:16 AM EDT Sexual Orientation Choose not to disclose 2021 10:16 AM EDT documented as of this encounter Last Filed Vital Signs Vital Sign Reading Time Taken Comments Blood Pressure 120/72 01/19/2025 11:30 AM EDT Pulse 82 01/19/2025 11:30 AM EDT Temperature 36.6 C (97.9 F) 01/19/2025 11:30 AM EDT Respiratory Rate 19 01/19/2025 11:30 AM EDT Oxygen Saturation 98% 01/19/2025 11:30 AM EDT Inhaled Oxygen Concentration - - Weight 68.5 kg (151 lb) 01/19/2025 11:30 AM EDT Height 157.5 cm (5' 2 ) 01/19/2025 11:30 AM EDT Body Mass Index 27.62 01/19/2025 11:30 AM EDT documented in this encounter Plan of Treatment Scheduled Orders Name Type Priority Associated Diagnoses Orde r Schedule Culture, Urine, Routine Microbiology Routine UTI symptoms Expected: 01/19/2025 (Approximate), Expires: 01/19/2026 Bacterial Vaginosis Panel Microbiology Routine UTI symptoms Ordered: 01/19/2025 Chlamydia/N. Gonorrhoeae RNA, TMA, Vaginal Microbiology Routine UTI symptoms Ordered: 01/19/2025 documented as of this encounter Procedures Procedure Name Priority Date/Time Associated Diagnosis Comments POCT URINALYSIS DIPSTICK Routine 01/19/2025 11:38 AM EDT UTI symptoms documented in this encounter Results * (ABNORMAL) POCT Urinalysis (01/19/2025 11:38 AM EDT) Color, UA Yellow Clarity, UA Cloudy Glucose, UA Negative Bilirubin, UA Negative Ketones, UA Negative Spec Grav, UA 1.030 Blood, UA Positive(A) Negative, None Detected Comment:Trace-Intact pH, UA 7.0 Protein, UA Negative Urobilinogen, UA 0.2 Leukocytes, UA Negative Negative, Rare, Trace Nitrite, UA Negative Negative, None Detected QC Media Lot # [id number] Lot# Expiration Date Urine (Urine, Random) 01/19/2025 11:38 AM EDT Luis Miguel Nathan MD POINT OF CARE TEST ENTER/EDIT OR DERABLES Final Result documented in this encounter Visit Diagnoses Diagnosis UTI symptoms documented in this encounter Additional Health Concerns Assessment Noted Time PHQ-9 Depression Total Score: 8 10/18/19 25 10:54 AM EDT documented as of this encounter Care Teams Telephone Sales Agent Relationship Specialty Start Date End Date Yoana Flores MD [address] [place] [address] PCP - General Family Medicine 11/16/21 documented as of this encounter
--- OUTSIDE RECORDS SUMMARY | 2025-01-19 15:14 | XMS_ITS | Clinical Summary ---
Author Organization [facility] Address [address] [place] [address] Care Team Providers Care Filer Repairer Name Role Phone Unavailable Primary Care Provider [...] patient's age to complete this topic Insurance [facility]
--- OUTSIDE RECORDS SUMMARY | 2025-01-19 15:14 | XMS_ITS | Encounter Summary ---
Author Organization [employer] Address [address] [facility] [address] [place] [address] Care Team Providers Care Neurodiagnostic Tech Name Role Phone Yoana Flores MD Primary Care Provider [phone] Encounter Details Date Type Department Care Team (Latest Contact Info) Description 01/19/2025 Travel Social History Tobacco Use Types Packs/Day [...] documented as of this encounter Care Teams Neurodiagnostic Tech Relationship Specialty Start Date End Date Yoana Flores MD [address] [place] [address] PCP - General Family Medicine 11/16/21 documented as of this encounter
--- OUTSIDE RECORDS SUMMARY | 2025-01-19 15:14 | XMS_ITS | Encounter Summary ---
Author Organization [employer] Address [address] [facility] [address] [place] [address] Care Team Providers Care Digital Imaging Specialist Name Role Phone Yoana Flores MD Primary Care Provider [phone] Reason for Visit * Reason Onset Date Comments No Show 01/18/2025 No show for sick on site Encounter Details Date Type Department Care Team (Late st Contact Info) Description 01/18/2025 Telephone [facility] [address] [place] [address] Yoana Flores MD [address] [place] [address] No Show (No show for sick on site/) Social History Tobacco Use Types Packs/Day Years [...] encounter Miscellaneous Notes * Telephone Encounter - Juliana Guajardo - 01/18/2025 12:59 PM EDT No show for sick on site documented in this encounter Plan of Treatment Not on file documented as of this encounter Visit Diagnoses Not on filedocumented in this encounter Additional Health Concerns Assessment Noted Time PHQ-9 Depression Total Score: 8 10/18/19 25 10:54 AM EDT documented as of this encounter Care Teams Digital Imaging Specialist Relationship Specialty Start Date End Date Yoana Flores MD [address] [place] [address] PCP - General Family Medicine 11/16/21 documented as of this encounter
--- OUTSIDE RECORDS SUMMARY | 2025-01-19 15:14 | XMS_ITS | Clinical Summary ---
Author Organization [facility] Address [address] [place] [address] Care Team Providers Care Junior Underwriter Name Role Phone Unavailable Primary Care Provider [...] Smear 09/19/2020 Depression Screening 04/11/2024 COVID-19 Vaccine ( - 2023-2 5 season) 2024 Influenza Vaccine [...]
--- OUTSIDE RECORDS SUMMARY | 2025-01-19 15:14 | XMS_ITS | Encounter Summary ---
Author Organization [employer] Address [address] [facility] [facility] [address] [place] [address] Care Team Providers Care Governor Assembler Name Role Phone Yoana Flores MD Primary Care Provider [phone] Camryn Maxwell Unavailable [phone] Draen Hodges Unavailable Encounter Details Date Type Department Care Team (Late st Contact Info) Description 05/20/2024 Orders Only [facility] [address] [place] [address] Provider, MD Karlene Social History Tobacco Use [...] documented as of this encounter Care Teams Governor Assembler Relationship Specialty Start Date End Date Yoana Flores MD [address] [place] [address] PCP - General Family Medicine 11/16/21 Camryn Maxwell Registered Nurse 09/10/24 09/11/24 Daren Hodges 09/10/24 09/11/24 documented as of this encounter
--- OUTSIDE RECORDS SUMMARY | 2025-01-19 15:14 | XMS_ITS | Encounter Summary ---
Author Organization [employer] Address [address] [facility] [address] [place] [address] Care Team Providers Care Roll Clamp Operator Name Role Phone Yoana Flores MD Primary Care Provider [phone] Reason for Visit * Reason Onset Date Comments Nurse Triage 01/17/2025 Encounter Details Date Type Department Care Team ([facility] st Contact Info) Description 01/17/2025 Telephone [facility] [address] [place], [place] [phone] Yoana Flores MD [address] [place] [address] Nurse Triage Social History Tobacco Use Types [...] encounter Miscellaneous Notes * Telephone Encounter - Dana Tijerina RN - 01/18/2025 11:44 AM EDT TC placed to patient [phone] in regards to below message. Patient advised we do not have anymore available appointments in the clinic for today or Tuesday. Patient advised to come to [facility] tomorrowto be evaluated and have urine tested. Patient educated on [facility] hours and risks of not having UTI treated timely. Patient reports she will come to [facility] tomorrow. Patient to f/u PRN. * Telephone Encounter - Doc Webb - 01/18/2025 11:12 AM EDT Tc from pt requesting to r/s the sick on site for 01/18. Contact pt at [phone] * Telephone Encounter - Emily Clay RN - 01/17/2025 3:31 PM EDT TC placed to pt for triage of pain when passing urine and multiple UTI's times a month. Pt reports they have had multiple UTI's over the last month. Pt reports they had BV that was treated, then theygot a UTI which was treated, pt then got another UTI which was treated. Pt is now reporting UTI symptoms again x 3 days. Pt reporting pain and burning with urination, back pain that comes and goes, fr equent urination, and sometimes with urination feels they need to urinate but do not urinate or urinate a small amount. Pt denies fever, chills, vomiting, inability to urinate. Pt reports they are able to urinate but do experience urgency to urinate. Pt also reports after urination, when they wipe,there is pink tinge on the toilet paper. Pt denies blood or pink tinged urine in the toilet. Pt reports they are not sure if the pink tinge is related to their menstrual cycle as they have not had a period in 3 months. Pt complaining of pain when showering explained as though they feel there is a cut. Pt reports they have looked and denies injury to explain the pain when showering or pink tinge on the toilet paper when wiping after urination. Pt also reports discharge like cottage cheese with no odor. No team or WIC availability today. Advised pt to go to urgent care or ED for evaluation today. Pt would prefer to wait. Advised pt importance to go to urgent care or ED for evaluation today. Pt reports they would like to be seen by a provider here tomorrow as they will be bringing their daughter. Pt booked for provider visit with Kelin Patel tomorrow 01/18/25 at 11:00 AM. Pt agreeable toappointment. Advised pt of WIC hours. Advised pt if they develop fever, worsening symptoms, or new symptoms to seek ED or urgent care evaluation. Pt agreeable to plan and denies questions at this time. Protocol Used: Urination Pain - Female (Adult) Protocol-Based Disposition: Go to Office or Video Visit Now Override (Final) Disposition: See in Office or Video Visit Today or Tomorrow Override Reason: Caller refused suggested disposition Override Notes: Patient declines seeking urgent care evaluation and would like to be seen by [facility] provider. Video visit offer not recorded Positive Triage Questions: * Side (flank) or lower back pain present * Unusual vaginal discharge * More than 2 UTIs in last year * Painful urination AND EITHER frequency or urgency * All higher-acuity triage questions were negative Care Advice Discussed: * Reassurance and Education - Possible Urine Infection * Reasons To Call Back - Fever or back pain occurs - You become worse * Telephone Encounter - Doc Webb - 01/17/2025 3:28 PM EDT Tc from pt returning call regarding prior message. Contact pt at [phone] * Telephone Encounter - Emily Clay RN - 01/17/2025 3:09 PM EDT TC placed to pt for triage of pain when passing urine and multiple UTI's times a month. No answer, LVM to call office back and ask to speak to the triage nurses. * Telephone Encounter - Lexi Schmitt - 01/17/2025 2:48 PM EDT Symptom: Urine Symptoms Outcome: Schedule an urgent appointment (within 4 hours) or talk to a nurse or provider soon Reason: Pain when passing urine (peeing) The caller accepted this outcome.. Contact pt at [phone] Pt has been having utis multiple times a month documented in this encounter Plan of Treatment Not on file documented as of this encounter Visit Diagnoses Not on filedocumented in this encounter Additional Health Concerns Assessment Noted Time PHQ-9 Depression Total Score: 8 10/18/19 25 10:54 AM EDT documented as of this encounter Care Teams Roll Clamp Operator Relationship Specialty Start Date End Date Yoana Flores MD [address] [place] [phone] PCP - General Family Medicine 11/16/21 documented as of this encounter
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
[2025-01-20 08:15] LABS: Bacterial Vaginosis PCR POSITIVE (Negative); Candida Group PCR NOT DETECTED (Not Detect); Candida glab krusei PCR NOT DETECTED (Not Detect); Trichomonas vaginalis PCR NOT DETECTED (Not Detect)
[2025-01-20 08:47] LABS: CT PCR NOT DETECTED (Not Detect.); NG PCR NOT DETECTED (Not Detect.)
== END 2025-01-19 15:10 | disposition home or self-care (01) ==
LOC: HO.HHCLNP 15:09
PROVIDERS: Visit Provider Family Medicine
DX: Z20.2 Contact with and (suspected) exposure to infections with a predominantly sexual mode of transmission (principal); R39.9 Unspecified symptoms and signs involving the genitourinary system
CPT/HCPCS: 81515; 87086; 87491; 87591